=== PATIENT | male | born 1950 | race Caucasian/White ===

== ENCOUNTER 2016-09-15 04:47 | Inpatient (IN) | payer MEDICARE, OTHER ==
[~2016-09-15] VITALS: Ht 177.8 cm; Wt 74.3 kg
[2016-09-15 06:31] LABS: Basophils # (auto) 0 uL; Basophils % (auto) 0.2 % (0.0-2.0); Eosinophils # (auto) 0 uL; Eosinophils % (auto) 0.1 % (0.0-7.0); Hematocrit 48.3 % (41.0-53.0); Hemoglobin 16.9 g/dL (13.5-17.5); Lymphocytes # (auto) 1.3 uL; Lymphocytes % (auto) 11.6 % (10.0-50.0); Mean Corpuscular Hemoglobin 33.8 pg (28.0-32.0); Mean Corpuscular Hgb Conc. 35.1 g/dL (32.0-36.0); Mean Corpuscular Volume 96.4 fL (80.0-100.0); Mean Platelet Volume 8.5 fL (7.4-10.4); Monocytes # (auto) 0.6 uL; Monocytes % (auto) 5.6 % (0.0-12.0); Neutrophils # (auto) 9.4 uL; Neutrophils % (auto) 82.5 % (37.0-80.0); Platelet Count (auto) 212 10^3/uL (140-450); Red Cell Distribution Width 13.7 % (11.6-16.0); White Blood Cell 11.4 10^3/uL (4.4-10.8)
[2016-09-15 06:40] LABS: INR 1.11 (0.9-1.15); Partial Thromboplastin Time 29.1 sec (22.64-33.71); Prothrombin Time 11.4 sec (9.37-12.3)
[2016-09-15] MEDS ORDERED: SODIUM CHLORIDE 0.9% 1,000 ML IV ONE (06:51)
[2016-09-15] MEDS ORDERED: MORPHINE SULFATE 4 MG/ML SYRG IV ONE (07:00)
[2016-09-15] MEDS ORDERED: FAMOTIDINE (10MG/ML) 2ML VL IV ONE (07:00)
[2016-09-15] MEDS ORDERED: METOCLOPRAMIDE HCL 5MG/ml INJ 2ml VIAL IV ONE (07:00)
[2016-09-15 07:15] LABS: Albumin 3.9 g/dL (3.4-5.0); Alkaline Phosphatase 67 U/L (45-117); Anion Gap 13 (5-15); Aspartate Aminotransferase 15 U/L (15-37); BUN/Creatinine Ratio 14.7; Bilirubin, Total 1.3 mg/dL (0.2-1.0); Blood Urea Nitrogen 19 mg/dL (7-18); Calcium 8.7 mg/dL (8.5-10.1); Carbon Dioxide 25 mmol/L (21-32); Chloride 106 mmol/L (98-107); GFR African American 72 mL/min; GFR Non-African American 59 mL/min; Glucose 132 mg/dL (74-106); Magnesium 2.2 mg/dL (1.6-2.6); Potassium 3.3 mmol/L (3.5-5.1); Sodium 144 mmol/L (136-145); Total Protein 7.1 g/dL (6.4-8.2)
[2016-09-15] MEDS ORDERED: IOHEXOL 350 MG/ML 100ML IJ ONE (08:22)
[2016-09-15] MEDS ORDERED: NALBUPHINE HCL 10 MG/1ml INJECTION ONE (10:01)
[2016-09-15] MEDS ORDERED: PROMETHAZINE HCL 25 MG/ML 1ML IV ONE (10:15)
[2016-09-15] MEDS ORDERED: NALBUPHINE HCL 10 MG/1ml INJECTION IV ONE (10:15)
[2016-09-15 14:06] LABS: Amylase 48 U/L (25-115)
[2016-09-15] MEDS ORDERED: TEMAZEPAM 15 MG CAP PO PRN (15:45)
[2016-09-15] MEDS ORDERED: HYDROcodone-ACET 5/325MG TAB PO PRN (15:45)
[2016-09-15] MEDS ORDERED: POTASSIUM CHLORIDE 8 MEQ TAB PO ONE (15:45)
[2016-09-15] MEDS ORDERED: MORPHINE SULF INJ 2 MG/ML SYRINGE 1ML IV PRN ×2 (15:45)
[2016-09-15] MEDS ORDERED: DOCUSATE SOD 100 MG CAP PO PRN (15:45)
[2016-09-15] MEDS ORDERED: ONDANSETRON HCL 4 MG/2 ML VIAL IV PRN (15:45)
[2016-09-15] MEDS ORDERED: NITROGLYCERIN 0.4 MG SL TAB SL PRN (15:45)
[2016-09-15] MEDS ORDERED: metroNIDAZOLE 500MG/100ML 100 ML IV ONE (15:45)
[2016-09-15] MEDS ORDERED: cefTRIAXone 1GM/50ML D5W 50 ML IV ONE (15:45)
[2016-09-15 15:57] LABS: Urine Bilirubin Negative (Negative); Urine Blood Negative /uL (Negative); Urine Color Yellow (Yellow); Urine Glucose Normal (Normal); Urine Mucus FEW (None Seen); Urine Nitrite Negative (Negative); Urine RBC 1 /hpf (0 - 3); Urine Urobilinogen Normal (Negative); Urine pH 6.5 (5.0-8.0)
[2016-09-15] MEDS: ZINC SULFATE 220 MG CAP PO SCH (16:00)
[2016-09-15] MEDS: SODIUM CHLORIDE 0.9% 1,000 ML IV SCH ×2 (16:00→17:04)
[2016-09-15] MEDS: MULTIPLE VITAMIN TAB PO SCH (16:00)
[2016-09-15 16:09] LABS: Urine Ketone 1+ (Negative)
[2016-09-15 16:09] LABS: B-Type Natriuretic Peptide 16.79 pg/mL (0-100)
[2016-09-15 16:11] LABS: Temperature: 23.3 C (20.0-25.0)
[2016-09-15 17:48] VITALS: BP 132/80
[2016-09-15] MEDS: ASCORBIC ACID 500 MG TAB PO SCH (21:11)
[2016-09-15] MEDS: FAMOTIDINE 20 MG TAB PO SCH (21:11)
[2016-09-15] MEDS: metroNIDAZOLE 500MG/100ML 100 ML IV SCH (21:12)
[2016-09-15 22:00] VITALS: BP 137/76
[2016-09-16 05:00] VITALS: BP 131/75
[2016-09-16] MEDS: metroNIDAZOLE 500MG/100ML 100 ML IV SCH ×3 (05:03→22:44)
[2016-09-16 06:08] LABS: Basophils # (auto) 0 uL; Basophils % (auto) 0.2 % (0.0-2.0); Eosinophils # (auto) 0 uL; Eosinophils % (auto) 0.2 % (0.0-7.0); Hematocrit 44.8 % (41.0-53.0); Hemoglobin 15.4 g/dL (13.5-17.5); Lymphocytes # (auto) 1.7 uL; Lymphocytes % (auto) 14.4 % (10.0-50.0); Mean Corpuscular Hemoglobin 33.4 pg (28.0-32.0); Mean Corpuscular Hgb Conc. 34.3 g/dL (32.0-36.0); Mean Corpuscular Volume 97.4 fL (80.0-100.0); Mean Platelet Volume 8.9 fL (7.4-10.4); Monocytes # (auto) 1.2 uL; Monocytes % (auto) 9.6 % (0.0-12.0); Neutrophils # (auto) 9.2 uL; Neutrophils % (auto) 75.6 % (37.0-80.0); Platelet Count (auto) 176 10^3/uL (140-450); Red Cell Distribution Width 13.4 % (11.6-16.0); White Blood Cell 12.2 10^3/uL (4.4-10.8)
[2016-09-16 06:56] LABS: Albumin 3.1 g/dL (3.4-5.0); Alkaline Phosphatase 58 U/L (45-117); Amylase 33 U/L (25-115); Anion Gap 12 (5-15); Aspartate Aminotransferase 17 U/L (15-37); BUN/Creatinine Ratio 13.9; Bilirubin, Total 1.9 mg/dL (0.2-1.0); Blood Urea Nitrogen 15 mg/dL (7-18); Calcium 7.8 mg/dL (8.5-10.1); Carbon Dioxide 23 mmol/L (21-32); Chloride 108 mmol/L (98-107); GFR African American 88 mL/min; GFR Non-African American 73 mL/min; Glucose 110 mg/dL (74-106); Potassium 3.6 mmol/L (3.5-5.1); Sodium 143 mmol/L (136-145); Total Protein 6.4 g/dL (6.4-8.2)
[2016-09-16 08:00] VITALS: BP 136/81
[2016-09-16] MEDS: cefTRIAXone 1GM/50ML D5W 50 ML IV SCH (08:43)
[2016-09-16] MEDS: ASCORBIC ACID 500 MG TAB PO SCH ×2 (10:07→22:44)
[2016-09-16] MEDS: FAMOTIDINE 20 MG TAB PO SCH ×2 (10:07→22:44)
[2016-09-16] MEDS: MULTIPLE VITAMIN TAB PO SCH (10:07)
[2016-09-16] MEDS: ZINC SULFATE 220 MG CAP PO SCH (10:07)
[2016-09-16 11:30] VITALS: BP 141/76
[2016-09-16 16:40] VITALS: BP 148/84
[2016-09-16 20:00] VITALS: BP 139/84
[2016-09-16 22:00] VITALS: BP 139/84
[2016-09-17] MEDS: SODIUM CHLORIDE 0.9% 1,000 ML IV SCH ×2 (01:11→17:23)
[2016-09-17 05:00] VITALS: BP 140/85
[2016-09-17] MEDS: metroNIDAZOLE 500MG/100ML 100 ML IV SCH ×3 (05:38→21:53)
[2016-09-17 07:50] VITALS: BP 140/86
[2016-09-17] MEDS: cefTRIAXone 1GM/50ML D5W 50 ML IV SCH (08:32)
[2016-09-17] MEDS: ASCORBIC ACID 500 MG TAB PO SCH ×2 (10:00→21:52)
[2016-09-17] MEDS: FAMOTIDINE 20 MG TAB PO SCH ×2 (10:00→21:52)
[2016-09-17] MEDS: MULTIPLE VITAMIN TAB PO SCH (10:00)
[2016-09-17] MEDS: ZINC SULFATE 220 MG CAP PO SCH (10:00)
[2016-09-17 13:44] VITALS: BP 130/87
[2016-09-17 16:08] VITALS: BP 148/83
[2016-09-17 20:00] VITALS: BP 122/86
[2016-09-17 21:46] VITALS: BP 122/86
[2016-09-18 05:37] VITALS: BP 137/87
[2016-09-18] MEDS: metroNIDAZOLE 500MG/100ML 100 ML IV SCH ×3 (05:47→22:43)
[2016-09-18 08:46] VITALS: BP 126/76
[2016-09-18] MEDS: SODIUM CHLORIDE 0.9% 1,000 ML IV SCH (10:14)
[2016-09-18] MEDS: FAMOTIDINE 20 MG TAB PO SCH ×2 (11:02→23:05)
[2016-09-18] MEDS: cefTRIAXone 1GM/50ML D5W 50 ML IV SCH (11:02)
[2016-09-18] MEDS: ZINC SULFATE 220 MG CAP PO SCH (11:02)
[2016-09-18] MEDS: MULTIPLE VITAMIN TAB PO SCH (11:02)
[2016-09-18] MEDS: ASCORBIC ACID 500 MG TAB PO SCH ×2 (11:03→23:05)
[2016-09-18 12:14] VITALS: BP 129/60
[2016-09-18 16:51] VITALS: BP 151/83
[2016-09-18 22:00] VITALS: BP 125/72
[2016-09-19] MEDS: SODIUM CHLORIDE 0.9% 1,000 ML IV SCH ×2 (02:54→17:41)
[2016-09-19 05:30] VITALS: BP 112/69
[2016-09-19] MEDS: metroNIDAZOLE 500MG/100ML 100 ML IV SCH ×3 (06:33→22:36)
[2016-09-19] MEDS: cefTRIAXone 1GM/50ML D5W 50 ML IV SCH (06:38)
[2016-09-19 06:44] LABS: INR 1.06 (0.9-1.15); Partial Thromboplastin Time 31.4 sec (22.64-33.71); Prothrombin Time 11.5 sec (9.37-12.3)
[2016-09-19 08:16] VITALS: BP 115/80
[2016-09-19 09:00] VITALS: BP 127/72
[2016-09-19] MEDS ORDERED: cefTRIAXone 1GM/50ML D5W 50 ML IV SCH (09:00)
[2016-09-19] MEDS: MULTIPLE VITAMIN TAB PO SCH (09:26)
[2016-09-19] MEDS: ZINC SULFATE 220 MG CAP PO SCH (09:26)
[2016-09-19] MEDS: FAMOTIDINE 20 MG TAB PO SCH ×2 (09:26→22:37)
[2016-09-19] MEDS: ASCORBIC ACID 500 MG TAB PO SCH ×2 (09:26→22:36)
[2016-09-19] MEDS ORDERED: NITROGLYCERIN 0.2MG/HR TOPICAL PATCH TD ONE (11:45)
[2016-09-19] MEDS ORDERED: ASPirin 81 mg TAB PO ONE (11:45)
[2016-09-19 12:57] VITALS: BP 127/80
[2016-09-19 17:00] VITALS: BP 122/70
[2016-09-19 21:53] VITALS: BP 116/69
[2016-09-20 04:48] VITALS: BP 116/62
[2016-09-20 05:50] LABS: Basophils # (auto) 0 uL; Basophils % (auto) 0.4 % (0.0-2.0); Eosinophils # (auto) 0.4 uL; Eosinophils % (auto) 4.5 % (0.0-7.0); Hematocrit 39.9 % (41.0-53.0); Hemoglobin 14.1 g/dL (13.5-17.5); Lymphocytes # (auto) 1.6 uL; Mean Corpuscular Hemoglobin 33.9 pg (28.0-32.0); Mean Corpuscular Hgb Conc. 35.3 g/dL (32.0-36.0); Mean Platelet Volume 7.5 fL (7.4-10.4); Monocytes # (auto) 0.8 uL; Monocytes % (auto) 8.2 % (0.0-12.0); Neutrophils # (auto) 6.5 uL; Neutrophils % (auto) 69.9 % (37.0-80.0); Platelet Count (auto) 253 10^3/uL (140-450); Red Cell Distribution Width 12.3 % (11.6-16.0); White Blood Cell 9.2 10^3/uL (4.4-10.8)
[2016-09-20] MEDS: metroNIDAZOLE 500MG/100ML 100 ML IV SCH ×2 (06:00→18:19)
[2016-09-20 06:30] LABS: Albumin 2.7 g/dL (3.4-5.0); BUN/Creatinine Ratio 13.6; Bilirubin, Total 0.8 mg/dL (0.2-1.0); Calcium 7.9 mg/dL (8.5-10.1); Potassium 3.4 mmol/L (3.5-5.1); Total Protein 6.2 g/dL (6.4-8.2)
[2016-09-20] MEDS ORDERED: LIDOCAINE 2%HCL (LOCAL ANESTH.) INJ 20ML MDV ONE (08:55)
[2016-09-20] MEDS ORDERED: IODIXANOL 320MG/ML 100ML BTL IV ONE (08:55)
[2016-09-20 09:00] VITALS: BP 120/69
[2016-09-20] MEDS: NITROGLYCERIN 0.2MG/HR TOPICAL PATCH TD SCH (09:03)
[2016-09-20] MEDS: FAMOTIDINE 20 MG TAB PO SCH ×2 (09:03→22:06)
[2016-09-20] MEDS: ASCORBIC ACID 500 MG TAB PO SCH ×2 (09:03→22:06)
[2016-09-20] MEDS: ASPirin 81 mg TAB PO SCH (09:03)
[2016-09-20] MEDS: ZINC SULFATE 220 MG CAP PO SCH (09:03)
[2016-09-20] MEDS: MULTIPLE VITAMIN TAB PO SCH (09:03)
[2016-09-20] MEDS: SODIUM CHLORIDE 0.9% 1,000 ML IV SCH (11:32)
[2016-09-20 13:00] VITALS: BP 137/74
[2016-09-20] MEDS ORDERED: MIDAZOLAM HCL 1MG/1ML-2 ML VIAL ONE (13:29)
[2016-09-20] MEDS ORDERED: ANGIOMAX 250 MG VIAL IV ONE (13:29)
[2016-09-20] MEDS ORDERED: SODIUM CHL 0.9% 0 ML ONE (13:29)
[2016-09-20] MEDS ORDERED: fentaNYL CITRATE 100 MCG/2 ML VL ONE (13:29)
[2016-09-20 17:01] VITALS: BP 145/93
[2016-09-20 21:30] VITALS: BP 137/77
[2016-09-21] MEDS: SODIUM CHLORIDE 0.9% 1,000 ML IV SCH ×2 (02:05→21:58)
[2016-09-21] MEDS: metroNIDAZOLE 500MG/100ML 100 ML IV SCH ×3 (02:05→17:28)
[2016-09-21 05:10] VITALS: BP 130/74
[2016-09-21 06:47] LABS: Cholesterol 86 mg/dL (0-200); HDL Cholesterol 25 mg/dL (40-59); LDL Cholesterol 66 mg/dL (<100); Triglycerides 66 mg/dL (<150)
[2016-09-21 07:50] VITALS: BP 132/86
[2016-09-21 09:17] VITALS: BP 132/86
[2016-09-21] MEDS: ASCORBIC ACID 500 MG TAB PO SCH ×2 (09:46→21:58)
[2016-09-21] MEDS: ZINC SULFATE 220 MG CAP PO SCH (09:46)
[2016-09-21] MEDS: MULTIPLE VITAMIN TAB PO SCH (09:46)
[2016-09-21] MEDS: FAMOTIDINE 20 MG TAB PO SCH ×2 (09:46→21:58)
[2016-09-21] MEDS: ASPirin 81 mg TAB PO SCH (09:46)
[2016-09-21] MEDS: NITROGLYCERIN 0.2MG/HR TOPICAL PATCH TD SCH (10:31)
[2016-09-21 13:08] VITALS: BP 127/77
[2016-09-21] MEDS ORDERED: HYDR25TA4 PO (14:27)
[2016-09-21] MEDS ORDERED: ASPI-231 PO (14:27)
[2016-09-21] MEDS ORDERED: ATOR40TA52 PO (14:27)
[2016-09-21] MEDS ORDERED: CLOP75TA41 PO (14:27)
[2016-09-21 17:22] VITALS: BP 121/76
[2016-09-21 22:00] VITALS: BP 131/78
[2016-09-22] MEDS: metroNIDAZOLE 500MG/100ML 100 ML IV SCH ×3 (02:00→18:27)
[2016-09-22 04:54] VITALS: BP 131/79
[2016-09-22 05:54] LABS: Basophils # (auto) 0.1 uL; Basophils % (auto) 0.5 % (0.0-2.0); Eosinophils # (auto) 0.4 uL; Eosinophils % (auto) 4.6 % (0.0-7.0); Hematocrit 44.3 % (41.0-53.0); Hemoglobin 15.2 g/dL (13.5-17.5); Lymphocytes # (auto) 2.2 uL; Lymphocytes % (auto) 23.6 % (10.0-50.0); Mean Corpuscular Hgb Conc. 34.3 g/dL (32.0-36.0); Mean Corpuscular Volume 96.1 fL (80.0-100.0); Mean Platelet Volume 7.3 fL (7.4-10.4); Monocytes # (auto) 0.6 uL; Monocytes % (auto) 6.6 % (0.0-12.0); Neutrophils # (auto) 6.2 uL; Neutrophils % (auto) 64.7 % (37.0-80.0); Platelet Count (auto) 338 10^3/uL (140-450); Red Cell Distribution Width 12.9 % (11.6-16.0); White Blood Cell 9.5 10^3/uL (4.4-10.8)
[2016-09-22 06:10] LABS: INR 1.15 (0.9-1.15)
[2016-09-22 06:12] LABS: Prothrombin Time 12.4 sec (9.37-12.3)
[2016-09-22 06:35] LABS: Albumin 2.9 g/dL (3.4-5.0); Bilirubin, Total 0.5 mg/dL (0.2-1.0); Calcium 8.3 mg/dL (8.5-10.1); Magnesium 2.4 mg/dL (1.6-2.6); Potassium 3.5 mmol/L (3.5-5.1); Total Protein 6.8 g/dL (6.4-8.2)
[2016-09-22 07:38] VITALS: BP 130/90
[2016-09-22] MEDS ORDERED: LIDOCAINE HCL 100 MG/5ML (2%) SYRG INJ IV ONE (08:00)
[2016-09-22] MEDS ORDERED: SODIUM BICARBONATE 8.4 % INJ 50ML VIAL IV ONE (08:00)
[2016-09-22] MEDS ORDERED: ADENOSINE 6 MG/2 ML INJ IV ONE (08:00)
[2016-09-22] MEDS ORDERED: HEPARIN SODIUM (PORCINE) 5000 UNITS/ML 1ML VIAL SC ONE (08:00)
[2016-09-22] MEDS ORDERED: POTASSIUM CHL 2MEQ/ML 20ML IV ONE (08:00)
[2016-09-22] MEDS ORDERED: AMINOCAPROIC ACID 5 GM/20 ML VL IV ONE (08:00)
[2016-09-22] MEDS ORDERED: PHENYLEPHRINE HCL 10 MG/ML VL IV ONE (08:00)
[2016-09-22] MEDS ORDERED: CALCIUM CHLOR(10%) 100MG/ML 10ML SYRINGE IV ONE (08:00)
[2016-09-22] MEDS ORDERED: DEXAMETHASONE SODIUM PHOSP 120 MG/30ml VIAL IV ONE (08:00)
[2016-09-22 09:00] VITALS: BP 130/90
[2016-09-22 09:05] LABS: INR 1.15 (0.9-1.15); Partial Thromboplastin Time 31.5 sec (22.64-33.71)
[2016-09-22 09:06] LABS: Prothrombin Time 12.4 sec (9.37-12.3)
[2016-09-22] MEDS: MULTIPLE VITAMIN TAB PO SCH (09:44)
[2016-09-22] MEDS: ZINC SULFATE 220 MG CAP PO SCH (09:44)
[2016-09-22] MEDS: FAMOTIDINE 20 MG TAB PO SCH ×2 (09:44→21:21)
[2016-09-22] MEDS: ASCORBIC ACID 500 MG TAB PO SCH ×2 (09:44→21:21)
[2016-09-22] MEDS: ASPirin 81 mg TAB PO SCH (09:44)
[2016-09-22] MEDS: NITROGLYCERIN 0.2MG/HR TOPICAL PATCH TD SCH (09:47)
[2016-09-22 13:00] VITALS: BP 123/74
[2016-09-22] MEDS: SODIUM CHLORIDE 0.9% 1,000 ML IV SCH (14:14)
[2016-09-22 17:00] VITALS: BP 139/84
[2016-09-22 21:42] VITALS: BP_SYST 138; BP_SYST 140; BP_DIAS 74; BP_DIAS 80
[2016-09-22] MEDS ORDERED: MUPIROCIN 2% OINT 22GM ONE (22:03)
[2016-09-22] MEDS: MUPIROCIN 2% OINT 22GM TOP SCH (22:20)
[2016-09-23] VITALS (39 sets, daily range): BP systolic 22–141; BP diastolic 9–86
[2016-09-23 01:06] LABS: Urine Bilirubin Negative (Negative); Urine Blood Negative /uL (Negative); Urine Color Yellow (Yellow); Urine Glucose Normal (Normal); Urine Ketone Negative (Negative); Urine Nitrite Negative (Negative); Urine RBC <1 /hpf (0 - 3); Urine Urobilinogen Normal (Negative)
[2016-09-23] MEDS ORDERED: CHLORHEXIDINE 4% TOPICAL soln 473ML TOP ONE (02:00)
[2016-09-23] MEDS: metroNIDAZOLE 500MG/100ML 100 ML IV SCH (02:57)
[2016-09-23] MEDS: SODIUM CHLORIDE 0.9% 1,000 ML IV SCH (06:24)
[2016-09-23] MEDS: MUPIROCIN 2% OINT 22GM TOP SCH (06:24)
[2016-09-23] MEDS ORDERED: SUCCINYLCHOLINE CHLORIDE 20 MG/ML 10ML VIAL IV ONE (06:32)
[2016-09-23] MEDS ORDERED: DESMOPRESSIN ACET 4 MCG/1 ML AMPULE ONE (06:32)
[2016-09-23] MEDS ORDERED: ceFAZolin 1GM VL ONE ×2 (06:33→10:51)
[2016-09-23] MEDS ORDERED: PAPAVERINE HCL 60 MG/2 ML 2ML VIAL ONE (06:34)
[2016-09-23] MEDS ORDERED: NEOMYCIN-BACITRACIN-POLYM 15GM TOP OINT TOP ONE (06:34)
[2016-09-23] MEDS ORDERED: HEPARIN 1,000 UNITS/ml 1ML VIAL ONE (06:34)
[2016-09-23] MEDS ORDERED: CALCIUM CHLOR(10%) 100MG/ML 10ML SYRINGE IV ONE ×2 (06:43→15:47)
[2016-09-23] MEDS ORDERED: NITROGLYCERIN 50MG/250ML 250 ML IV ONE ×2 (06:43→13:27)
[2016-09-23] MEDS ORDERED: ePHEDrine SULFATE 50 MG/ML AMP ONE (06:45)
[2016-09-23] MEDS ORDERED: MIDAZOLAM HCL 1MG/1ML-2 ML VIAL ONE ×3 (06:50→09:44)
[2016-09-23] MEDS ORDERED: HYDROmorphone HCL 2 MG/ML VL ONE ×2 (06:50→08:56)
[2016-09-23 06:54] LABS: Basophils # (auto) 0 uL; Basophils % (auto) 0.5 % (0.0-2.0); Eosinophils # (auto) 0.4 uL; Eosinophils % (auto) 4.4 % (0.0-7.0); Hematocrit 43.8 % (41.0-53.0); Lymphocytes # (auto) 1.8 uL; Lymphocytes % (auto) 20.4 % (10.0-50.0); Mean Corpuscular Hemoglobin 33.1 pg (28.0-32.0); Mean Corpuscular Hgb Conc. 34.3 g/dL (32.0-36.0); Mean Corpuscular Volume 96.4 fL (80.0-100.0); Mean Platelet Volume 7.6 fL (7.4-10.4); Monocytes # (auto) 0.6 uL; Monocytes % (auto) 7.2 % (0.0-12.0); Neutrophils % (auto) 67.5 % (37.0-80.0); Platelet Count (auto) 339 10^3/uL (140-450); Red Cell Distribution Width 12.5 % (11.6-16.0); White Blood Cell 8.9 10^3/uL (4.4-10.8)
[2016-09-23] MEDS ORDERED: SODIUM BICARBONATE 8.4 % INJ 50ML VIAL IV ONE ×2 (06:55→15:47)
[2016-09-23] MEDS ORDERED: ETOMIDATE (2MG/ML) 20ML VIAL IV ONE (06:55)
[2016-09-23] MEDS ORDERED: LIDOCAINE 2%HCL (LOCAL ANESTH.) INJ 20ML MDV ONE (06:55)
[2016-09-23] MEDS ORDERED: ROCURONIUM 10MG/ML 10ML VIAL IV ONE (06:56)
[2016-09-23 07:00] LABS: Calcium 8.4 mg/dL (8.5-10.1); Magnesium 2.4 mg/dL (1.6-2.6); Potassium 3.6 mmol/L (3.5-5.1)
[2016-09-23 07:04] LABS: BUN/Creatinine Ratio 17.4
[2016-09-23] MEDS ORDERED: VANCOMYCIN 1GM/250ML D5W 250 ML IV ONE ×2 (07:09→08:00)
[2016-09-23 07:26] LABS: INR 1.16 (0.9-1.15); Prothrombin Time 12.5 sec (9.37-12.3)
[2016-09-23] MEDS ORDERED: ALBUMIN 25% 400 ML IV ONE (07:36)
[2016-09-23] MEDS ORDERED: EPINEPHrine HCL 4 MG in D5W 5% 250 ML IM ONE (08:00)
[2016-09-23] MEDS ORDERED: AMINOCAPROIC ACID 5 GM in SODIUM CHL 0.9% 250 ML IV ONE (08:00)
[2016-09-23] MEDS ORDERED: VASOPRESSIN 50 UNITS in SODIUM CHL 0.9% 247.5 ML IV ONE (08:00)
[2016-09-23] MEDS ORDERED: ACCU-CHEK COMFORT CURVE STRIP VI ONE (08:00)
[2016-09-23] MEDS ORDERED: CHLORHEXIDINE 0.12% ORAL rinse 473ML MT ONE (08:00)
[2016-09-23] MEDS ORDERED: ceFAZolin 1GM 2 GM in D5W 5% 100 ML IV ONE (08:00)
[2016-09-23] MEDS ORDERED: ASCORBIC ACID 500 MG TAB PO ONE (08:00)
[2016-09-23] MEDS ORDERED: PHENYLEPHRINE INJ 20 MG in SODIUM CHL 0.9% 250 ML IV ONE (08:00)
[2016-09-23] MEDS ORDERED: InsuLIN R (HUMAN) 100 UNITS in SODIUM CHL 0.9% 99 ML IV ONE (08:00)
[2016-09-23] MEDS ORDERED: HEPARIN 30000 UNITS in SODIUM CHLORIDE 0.9% 1000 ML IV ONE (08:00)
[2016-09-23] MEDS ORDERED: AMINOCAPROIC ACID 10 GM in SODIUM CHL 0.9% 100 ML IV ONE (08:00)
[2016-09-23] MEDS ORDERED: PLASMA-LYTE A pH7.4 5,000 ML INJ ONE (08:47)
[2016-09-23] MEDS ORDERED: PROTAMINE SULFATE 250 MG/25 ML VL IV ONE (09:28)
[2016-09-23] MEDS ORDERED: MILRINONE 20 ML ONE (09:31)
[2016-09-23] MEDS ORDERED: AMIODARONE HCL (50 MG/ ML) 3 ML VIAL IV ONE ×2 (09:31→13:26)
[2016-09-23] MEDS ORDERED: ALBUMIN 5% 750 ML IV ONE (13:24)
[2016-09-23] MEDS ORDERED: MAGNESIUM SULFATE 1GM/100ML 200 ML IV ONE (13:25)
[2016-09-23] MEDS ORDERED: SODIUM BICARBONATE 8.4% INJ 50ML SYRINGE ONE (13:25)
[2016-09-23] MEDS ORDERED: POTASSIUM CHL 20MEQ/100ML 200 ML IV ONE (13:25)
[2016-09-23] MEDS ORDERED: NICARDIPINE 25MG/250ML BAG KIT 250 ML IV ONE (13:26)
[2016-09-23] MEDS ORDERED: EPINEPHrine HCL 250 ML IV ONE (13:27)
[2016-09-23] MEDS ORDERED: DOPAMINE IV ONE (13:27)
[2016-09-23] MEDS ORDERED: VASOPRESSIN 20 UNIT/ML ONE (13:27)
[2016-09-23] MEDS ORDERED: NOREPINEPHRINE BITARTRATE 250 ML IV ONE (13:27)
[2016-09-23] MEDS ORDERED: MILRINONE 20MG/100ML 100 ML IV ONE (13:27)
[2016-09-23] MEDS ORDERED: PHENYLEPHRINE IV 250 ML IV ONE (13:27)
[2016-09-23] MEDS ORDERED: DOBUTamine 1000MCG/ML 250 ML IV ONE (13:27)
[2016-09-23] MEDS ORDERED: PROPOFOL 100 ML IV ONE (13:28)
[2016-09-23] MEDS ORDERED: NITROGLYCERIN 50MG/250ML 250 ML IV SCH (13:53)
[2016-09-23] MEDS ORDERED: INSULIN DRIP 100 UNIT/100ML 100 ML IV SCH (13:53)
[2016-09-23] MEDS ORDERED: DEXTROSE (50%) 50ML SYRG IV PRN (14:00)
[2016-09-23] MEDS ORDERED: AMIODARONE HCL 150 MG in D5W 5% 100 ML IV ONE (14:00)
[2016-09-23] MEDS ORDERED: SODIUM BICARBONATE 8.4% INJ 50ML SYRINGE IV PRN (14:00)
[2016-09-23] MEDS ORDERED: MORPHINE SULFATE 4 MG/ML SYRG IV PRN (14:00)
[2016-09-23] MEDS ORDERED: MAGNESIUM SULFATE 1GM/100ML 100 ML IV PRN (14:00)
[2016-09-23] MEDS ORDERED: ONDANSETRON HCL 4 MG/2 ML VIAL IV PRN (14:00)
[2016-09-23] MEDS ORDERED: AMIODARONE HCL 900 MG in DEXTROSE 500 ML IV SCH (14:03)
[2016-09-23] MEDS: NICARDIPINE 25MG/250ML BAG KIT 250 ML IV SCH ×3 (14:29→23:53)
[2016-09-23] MEDS: SODIUM CHLORIDE 0.9% 500 ML IV SCH (14:29)
[2016-09-23] MEDS: MILRINONE 20MG/100ML 100 ML IV SCH (14:29)
[2016-09-23] MEDS: NOREPINEPHRINE BITARTRATE 250 ML IV SCH (14:35)
[2016-09-23] MEDS ORDERED: fentaNYL CITRATE 100 MCG/2 ML VL ONE (14:39)
[2016-09-23] MEDS ORDERED: fentaNYL CITRATE 5 ML ONE (14:41)
[2016-09-23] MEDS: PHENYLEPHRINE IV 250 ML IV SCH (15:00)
[2016-09-23] MEDS: PROPOFOL 100 ML IV SCH ×2 (15:00→20:10)
[2016-09-23] MEDS ORDERED: D5W 5% IV SCH (15:00)
[2016-09-23] MEDS ORDERED: CEFAZOLIN IV SCH (15:00)
[2016-09-23] MEDS: ACCU-CHEK COMFORT CURVE STRIP VI SCH ×9 (15:00→23:29)
[2016-09-23 15:47] LABS: Basophils # (auto) 0 uL; Eosinophils # (auto) 0 uL; Eosinophils % (auto) 0.2 % (0.0-7.0); Hematocrit 39.8 % (41.0-53.0); Hemoglobin 13.3 g/dL (13.5-17.5); Lymphocytes # (auto) 1.1 uL; Lymphocytes % (auto) 5.8 % (10.0-50.0); Mean Corpuscular Hemoglobin 32.9 pg (28.0-32.0); Mean Corpuscular Hgb Conc. 33.5 g/dL (32.0-36.0); Mean Corpuscular Volume 98.3 fL (80.0-100.0); Mean Platelet Volume 7.4 fL (7.4-10.4); Monocytes # (auto) 0.3 uL; Monocytes % (auto) 1.9 % (0.0-12.0); Neutrophils # (auto) 16.8 uL; Neutrophils % (auto) 92.1 % (37.0-80.0); Platelet Count (auto) 380 10^3/uL (140-450); Red Cell Distribution Width 12.9 % (11.6-16.0); White Blood Cell 18.2 10^3/uL (4.4-10.8)
[2016-09-23] MEDS ORDERED: AMINOCAPROIC ACID 5 GM/20 ML VL IV ONE (15:47)
[2016-09-23] MEDS ORDERED: MAGNESIUM SULF 50% 40 MEQ/10 ML VL IV ONE (15:47)
[2016-09-23] MEDS ORDERED: ADENOSINE 6 MG/2 ML INJ IV ONE (15:47)
[2016-09-23] MEDS ORDERED: POTASSIUM CHL 2MEQ/ML 20ML IV ONE (15:47)
[2016-09-23] MEDS ORDERED: HEPARIN SODIUM (PORCINE) 5000 UNITS/ML 1ML VIAL SC ONE (15:47)
[2016-09-23] MEDS ORDERED: LIDOCAINE HCL 100 MG/5ML (2%) SYRG INJ IV ONE (15:47)
[2016-09-23] MEDS ORDERED: DEXAMETHASONE SODIUM PHOSP 120 MG/30ml VIAL IV ONE (15:47)
[2016-09-23] MEDS: D5W/SOD CHL 0.45% 1,000 ML IV SCH ×2 (15:48→20:33)
[2016-09-23 16:05] LABS: Albumin 3.5 g/dL (3.4-5.0); BUN/Creatinine Ratio 11.7; Bilirubin, Total 0.9 mg/dL (0.2-1.0); Calcium 8.3 mg/dL (8.5-10.1); Magnesium 3.4 mg/dL (1.6-2.6); Phosphorus 2.6 mg/dL (2.5-4.90); Potassium 4.3 mmol/L (3.5-5.1); Total Protein 6.2 g/dL (6.4-8.2)
[2016-09-23 16:41] LABS: Partial Thromboplastin Time 32.7 sec (22.64-33.71)
[2016-09-23 16:42] LABS: INR 1.21 (0.9-1.15); Prothrombin Time 13.1 sec (9.37-12.3)
[2016-09-23] MEDS ORDERED: CALCIUM GLUC 4.65 MEQ/10ML 4.65 MEQ in SODIUM CHL 0.9% 50 ML IV ONE (16:45)
[2016-09-23] MEDS: PANTOPRAZOLE SODIUM 40 MG/10 ML VIAL IV SCH (16:52)
[2016-09-23] MEDS: ALBUMIN 5% 250 ML IV PRN ×2 (17:00→20:11)
[2016-09-23] MEDS: ACETAMINOPHEN IV 100 ML IV SCH (18:29)
[2016-09-23] MEDS: ceFAZolin 1GM 2 GM in D5W 5% 100 ML IV SCH (18:31)
[2016-09-23] MEDS: AMIODARONE HCL 900 MG in DEXTROSE 500 ML IV SCH (20:03)
[2016-09-23] MEDS: VANCOMYCIN 1GM/250ML D5W 250 ML IV SCH (20:13)
[2016-09-23 22:05] LABS: Basophils # (auto) 0.1 uL; Basophils % (auto) 0.5 % (0.0-2.0); Eosinophils # (auto) 0 uL; Hemoglobin 12.3 g/dL (13.5-17.5); Lymphocytes # (auto) 0.7 uL; Lymphocytes % (auto) 4.3 % (10.0-50.0); Mean Corpuscular Hemoglobin 33.1 pg (28.0-32.0); Mean Corpuscular Volume 97.2 fL (80.0-100.0); Mean Platelet Volume 7.2 fL (7.4-10.4); Monocytes # (auto) 0.3 uL; Monocytes % (auto) 1.9 % (0.0-12.0); Neutrophils # (auto) 14.4 uL; Neutrophils % (auto) 93.3 % (37.0-80.0); Platelet Count (auto) 335 10^3/uL (140-450); Red Cell Distribution Width 13.1 % (11.6-16.0); White Blood Cell 15.5 10^3/uL (4.4-10.8)
[2016-09-23 22:20] LABS: BUN/Creatinine Ratio 11.8; Calcium 8.3 mg/dL (8.5-10.1); Magnesium 2.8 mg/dL (1.6-2.6); Phosphorus 1.9 mg/dL (2.5-4.90); Potassium 3.7 mmol/L (3.5-5.1)
[2016-09-23] MEDS: CHLORHEXIDINE 0.12% ORAL rinse 473ML MT SCH (22:21)
[2016-09-23] MEDS: POTASSIUM CHL 20MEQ/100ML 100 ML IV PRN (23:37)
[2016-09-24] VITALS (102 sets, daily range): BP systolic 17–143; BP diastolic 2–87
[2016-09-24] MEDS: ACCU-CHEK COMFORT CURVE STRIP VI SCH ×14 (00:10→23:25)
[2016-09-24] MEDS: ceFAZolin 1GM 2 GM in D5W 5% 100 ML IV SCH ×4 (00:13→23:57)
[2016-09-24] MEDS: ACETAMINOPHEN IV 100 ML IV SCH ×3 (00:13→12:08)
[2016-09-24] MEDS: POTASSIUM CHL 20MEQ/100ML 100 ML IV PRN ×3 (00:41→12:07)
[2016-09-24] MEDS: MILRINONE 20MG/100ML 100 ML IV SCH ×3 (01:09→23:41)
[2016-09-24] MEDS: D5W/SOD CHL 0.45% 1,000 ML IV SCH ×3 (03:13→18:51)
[2016-09-24 03:38] LABS: Basophils # (auto) 0 uL; Basophils % (auto) 0.1 % (0.0-2.0); Eosinophils # (auto) 0 uL; Hematocrit 34.3 % (41.0-53.0); Hemoglobin 11.8 g/dL (13.5-17.5); Lymphocytes # (auto) 0.7 uL; Lymphocytes % (auto) 4.7 % (10.0-50.0); Mean Corpuscular Hemoglobin 33.8 pg (28.0-32.0); Mean Corpuscular Hgb Conc. 34.4 g/dL (32.0-36.0); Mean Corpuscular Volume 98.4 fL (80.0-100.0); Mean Platelet Volume 7.1 fL (7.4-10.4); Monocytes # (auto) 0.4 uL; Monocytes % (auto) 2.7 % (0.0-12.0); Neutrophils # (auto) 13.4 uL; Neutrophils % (auto) 92.5 % (37.0-80.0); Platelet Count (auto) 304 10^3/uL (140-450); Red Cell Distribution Width 12.8 % (11.6-16.0); White Blood Cell 14.5 10^3/uL (4.4-10.8)
[2016-09-24 03:57] LABS: Calcium 8.1 mg/dL (8.5-10.1); Magnesium 2.7 mg/dL (1.6-2.6)
[2016-09-24 04:01] LABS: BUN/Creatinine Ratio 13.5; Phosphorus 2.5 mg/dL (2.5-4.90)
[2016-09-24] MEDS: NICARDIPINE 25MG/250ML BAG KIT 250 ML IV SCH ×4 (05:40→19:53)
[2016-09-24] MEDS: PROPOFOL 100 ML IV SCH (06:43)
[2016-09-24] MEDS: DOPamine 1600MCG/ML 250 ML IV SCH ×2 (06:46→23:25)
[2016-09-24] MEDS: MORPHINE SULFATE 4 MG/ML SYRG IV PRN ×2 (07:35→20:28)
[2016-09-24] MEDS: VANCOMYCIN 1GM/250ML D5W 250 ML IV SCH ×2 (08:27→19:46)
[2016-09-24] MEDS ORDERED: ALBUMIN 25% 100 ML IV ONE ×2 (09:07→09:15)
[2016-09-24] MEDS ORDERED: CALCIUM GLUC 4.65 MEQ/10ML 4.65 MEQ in SODIUM CHL 0.9% 50 ML IV ONE (09:30)
[2016-09-24] MEDS ORDERED: NITROGLYCERIN 0.4MG/HR TOPICAL PATCH TD ONE (10:00)
[2016-09-24] MEDS ORDERED: MILK OF MAGNESIA 30ML SUSP PO PRN (10:00)
[2016-09-24] MEDS: PANTOPRAZOLE 40 MG TAB PO SCH (10:00)
[2016-09-24] MEDS: PANTOPRAZOLE SODIUM 40 MG/10 ML VIAL IV SCH (10:10)
[2016-09-24] MEDS: CHLORHEXIDINE 0.12% ORAL rinse 473ML MT SCH ×2 (10:10→21:31)
[2016-09-24] MEDS: NITROGLYCERIN 0.4MG/HR TOPICAL PATCH TD SCH (10:11)
[2016-09-24] MEDS ORDERED: DEXTROSE (50%) 50ML SYRG IV PRN (10:15)
[2016-09-24] MEDS: InsuLIN REG 1unit/0.01ml Soln (100units/ml) SC SCH ×4 (12:00→23:29)
[2016-09-24] MEDS: SODIUM CHLORIDE 0.9% 500 ML IV SCH (13:53)
[2016-09-24] MEDS: NOREPINEPHRINE BITARTRATE 250 ML IV SCH (13:53)
[2016-09-24] MEDS: IPRATROPIUM BROM 0.5 MG/2.5ML INH SOL NEB SCH ×3 (14:20→22:29)
[2016-09-24] MEDS: ACETYLCYSTEINE 10 %(100MG/ML) SOL 4ML NEB SCH ×2 (14:21→19:31)
[2016-09-24] MEDS: PHENYLEPHRINE IV 250 ML IV SCH (15:00)
[2016-09-24 15:01] LABS: Hematocrit 32.8 % (41.0-53.0); Hemoglobin 11.1 g/dL (13.5-17.5); Mean Corpuscular Hemoglobin 33.1 pg (28.0-32.0); Mean Corpuscular Hgb Conc. 33.9 g/dL (32.0-36.0); Mean Corpuscular Volume 97.5 fL (80.0-100.0); Mean Platelet Volume 7.3 fL (7.4-10.4); Platelet Count (auto) 292 10^3/uL (140-450); Red Cell Distribution Width 13.2 % (11.6-16.0); SUSPECT VIEW TRANSMISSION; White Blood Cell 18.1 10^3/uL (4.4-10.8)
[2016-09-24 15:12] LABS: Metamyelocytes % 0; Myelocytes % 0; Promyelocytes % 0; Reactive Lymphocytes 0
[2016-09-24 15:22] LABS: Calcium 8.7 mg/dL (8.5-10.1); Magnesium 2.6 mg/dL (1.6-2.6); Potassium 4.5 mmol/L (3.5-5.1)
[2016-09-24] MEDS: ASCORBIC ACID 500 MG TAB PO SCH ×2 (16:17→21:30)
[2016-09-24] MEDS: DOCUSATE SOD 100 MG CAP PO SCH ×2 (16:18→21:31)
[2016-09-24] MEDS: ASPirin 81 mg TAB PO SCH (16:18)
[2016-09-24 17:19] LABS: Anisocytosis Slight; Platelet Estimate Adequate
[2016-09-24] MEDS: HYDROcodone-ACET 5/325MG TAB PO PRN ×2 (18:47→23:26)
[2016-09-24] MEDS: AMIODARONE HCL 900 MG in DEXTROSE 500 ML IV SCH (20:03)
[2016-09-24] MEDS: ATORVASTATIN 20 MG TAB PO SCH (21:30)
[2016-09-25] VITALS (91 sets, daily range): BP systolic 77–130; BP diastolic 44–81
[2016-09-25] MEDS: NICARDIPINE 25MG/250ML BAG KIT 250 ML IV SCH ×2 (00:53→04:11)
[2016-09-25] MEDS: MORPHINE SULFATE 4 MG/ML SYRG IV PRN ×4 (01:52→11:21)
[2016-09-25] MEDS: ACCU-CHEK COMFORT CURVE STRIP VI SCH ×3 (03:33→12:00)
[2016-09-25] MEDS: InsuLIN REG 1unit/0.01ml Soln (100units/ml) SC SCH ×3 (03:36→13:14)
[2016-09-25 03:56] LABS: Basophils # (auto) 0 uL; Basophils % (auto) 0.2 % (0.0-2.0); Eosinophils # (auto) 0 uL; Hematocrit 33.2 % (41.0-53.0); Hemoglobin 11.2 g/dL (13.5-17.5); Lymphocytes # (auto) 1.7 uL; Lymphocytes % (auto) 9.6 % (10.0-50.0); Mean Corpuscular Hemoglobin 33.1 pg (28.0-32.0); Mean Corpuscular Hgb Conc. 33.7 g/dL (32.0-36.0); Mean Corpuscular Volume 98.3 fL (80.0-100.0); Mean Platelet Volume 7.2 fL (7.4-10.4); Monocytes # (auto) 0.8 uL; Monocytes % (auto) 4.5 % (0.0-12.0); Neutrophils # (auto) 15.6 uL; Neutrophils % (auto) 85.7 % (37.0-80.0); Platelet Count (auto) 285 10^3/uL (140-450); Red Cell Distribution Width 13.3 % (11.6-16.0); White Blood Cell 18.2 10^3/uL (4.4-10.8)
[2016-09-25 04:31] LABS: Albumin 3.5 g/dL (3.4-5.0); BUN/Creatinine Ratio 22.2; Bilirubin, Total 0.5 mg/dL (0.2-1.0); Calcium 8.4 mg/dL (8.5-10.1); Magnesium 2.6 mg/dL (1.6-2.6); Potassium 4.5 mmol/L (3.5-5.1)
[2016-09-25] MEDS: D5W/SOD CHL 0.45% 1,000 ML IV SCH ×2 (05:53→08:16)
[2016-09-25] MEDS: ACETYLCYSTEINE 10 %(100MG/ML) SOL 4ML NEB SCH ×2 (06:37→22:26)
[2016-09-25] MEDS ORDERED: CALCIUM GLUC 4.65 MEQ/10ML 4.65 MEQ in SODIUM CHL 0.9% 50 ML IV ONE (08:15)
[2016-09-25] MEDS: VANCOMYCIN 1GM/250ML D5W 250 ML IV SCH (08:17)
[2016-09-25] MEDS: ceFAZolin 1GM 2 GM in D5W 5% 100 ML IV SCH (08:18)
[2016-09-25] MEDS ORDERED: METOCLOPRAMIDE HCL 5MG/ml INJ 2ml VIAL IV PRN (08:30)
[2016-09-25] MEDS ORDERED: POTASSIUM CHL 20MEQ/100ML 100 ML IV PRN (08:30)
[2016-09-25] MEDS ORDERED: TEMAZEPAM 15 MG CAP PO PRN (08:30)
[2016-09-25] MEDS: SODIUM CHLORIDE 0.9% 1,000 ML IV SCH (08:30)
[2016-09-25] MEDS ORDERED: HYDROcodone-ACET 7.5/325MG TAB PO PRN (08:30)
[2016-09-25] MEDS ORDERED: hydrALAZINE HCL 20 MG/ML VL IV PRN (08:45)
[2016-09-25] MEDS ORDERED: POTASSIUM CHL 20 Meq TABLET PO SCH (10:00)
[2016-09-25] MEDS: ASPirin 81 mg TAB PO SCH (10:00)
[2016-09-25] MEDS: PANTOPRAZOLE 40 MG TAB PO SCH (10:00)
[2016-09-25] MEDS: CHLORHEXIDINE 0.12% ORAL rinse 473ML MT SCH ×2 (10:00→21:23)
[2016-09-25] MEDS: DOCUSATE SOD 100 MG CAP PO SCH ×2 (10:00→21:23)
[2016-09-25] MEDS ORDERED: ceFAZolin 1GM 2 GM in D5W 5% 100 ML IV ONE (10:30)
[2016-09-25] MEDS: METOPROLOL TARTRATE 25 MG TAB PO SCH ×2 (10:45→21:23)
[2016-09-25] MEDS: ASCORBIC ACID 500 MG TAB PO SCH ×2 (10:45→21:25)
[2016-09-25] MEDS: NITROGLYCERIN 0.4MG/HR TOPICAL PATCH TD SCH (10:47)
[2016-09-25] MEDS: IPRATROPIUM BROM 0.5 MG/2.5ML INH SOL NEB SCH ×4 (10:50→22:26)
[2016-09-25] MEDS: Boost Glucose Control 8 Ounces PO SCH ×2 (12:00→18:30)
[2016-09-25] MEDS ORDERED: KETOROLAC TROMETH 30 MG/ML 1ML VIAL ONE (13:10)
[2016-09-25] MEDS ORDERED: KETOROLAC TROMETH 30 MG/ML 1ML VIAL IV ONE (13:15)
[2016-09-25] MEDS ORDERED: fentaNYL CITRATE 100 MCG/2 ML VL IV PRN (13:30)
[2016-09-25] MEDS ORDERED: POTASSIUM CHL 20 Meq TABLET PO PRN (13:30)
[2016-09-25] MEDS ORDERED: KETOROLAC TROMETH 30 MG/ML 1ML VIAL IV PRN (13:30)
[2016-09-25] MEDS ORDERED: ISOSORBIDE MONONITRATE 60 MG TAB PO ONE (13:45)
[2016-09-25] MEDS: SODIUM CHLORIDE 0.9% 500 ML IV SCH (13:53)
[2016-09-25] MEDS ORDERED: ALBUMIN 25% 50 ML IV ONE ×2 (13:54→14:15)
[2016-09-25] MEDS ORDERED: ALBUMIN 5% 250 ML IV ONE ×2 (13:54→14:15)
[2016-09-25] MEDS ORDERED: FUROSEMIDE 40 MG TAB PO SCH (18:00)
[2016-09-25] MEDS ORDERED: ALBUMIN 5% IV ONE (18:00)
[2016-09-25] MEDS: AMIODARONE HCL 900 MG in DEXTROSE 500 ML IV SCH (20:03)
[2016-09-25] MEDS: ATORVASTATIN 20 MG TAB PO SCH (21:25)
[2016-09-26] VITALS (76 sets, daily range): BP systolic 87–132; BP diastolic 40–87
[2016-09-26] MEDS: OXYCODONE W/ ACETAMINOPHEN 5/325MG TABLET PO PRN ×3 (02:18→21:00)
[2016-09-26 03:55] LABS: Basophils # (auto) 0 uL; Basophils % (auto) 0.2 % (0.0-2.0); Eosinophils # (auto) 0.1 uL; Eosinophils % (auto) 0.8 % (0.0-7.0); Hematocrit 33.7 % (41.0-53.0); Hemoglobin 11.1 g/dL (13.5-17.5); Lymphocytes % (auto) 18.5 % (10.0-50.0); Mean Corpuscular Hemoglobin 32.5 pg (28.0-32.0); Mean Corpuscular Hgb Conc. 33.1 g/dL (32.0-36.0); Mean Corpuscular Volume 98.3 fL (80.0-100.0); Mean Platelet Volume 7.3 fL (7.4-10.4); Monocytes # (auto) 0.7 uL; Monocytes % (auto) 6.8 % (0.0-12.0); Neutrophils # (auto) 8.1 uL; Neutrophils % (auto) 73.7 % (37.0-80.0); Platelet Count (auto) 283 10^3/uL (140-450); Red Cell Distribution Width 13.2 % (11.6-16.0)
[2016-09-26] MEDS: SODIUM CHLORIDE 0.9% 1,000 ML IV SCH (04:30)
[2016-09-26 04:50] LABS: Albumin 3.6 g/dL (3.4-5.0); BUN/Creatinine Ratio 29.8; Bilirubin, Total 0.5 mg/dL (0.2-1.0); Calcium 8.2 mg/dL (8.5-10.1); Magnesium 2.5 mg/dL (1.6-2.6); Potassium 3.9 mmol/L (3.5-5.1); Total Protein 6.1 g/dL (6.4-8.2)
[2016-09-26] MEDS: ACETYLCYSTEINE 10 %(100MG/ML) SOL 4ML NEB SCH ×3 (06:31→22:43)
[2016-09-26] MEDS: IPRATROPIUM BROM 0.5 MG/2.5ML INH SOL NEB SCH ×4 (06:31→22:43)
[2016-09-26] MEDS: Boost Glucose Control 8 Ounces PO SCH ×3 (08:00→18:00)
[2016-09-26] MEDS ORDERED: CALCIUM GLUC 4.65 MEQ/10ML 4.65 MEQ in SODIUM CHL 0.9% 50 ML IV ONE (08:15)
[2016-09-26] MEDS: DOCUSATE SOD 100 MG CAP PO SCH ×2 (10:00→22:00)
[2016-09-26] MEDS: NITROGLYCERIN 0.4MG/HR TOPICAL PATCH TD SCH (10:16)
[2016-09-26] MEDS: PANTOPRAZOLE 40 MG TAB PO SCH (10:17)
[2016-09-26] MEDS: METOPROLOL TARTRATE 25 MG TAB PO SCH ×2 (10:17→22:00)
[2016-09-26] MEDS: CHLORHEXIDINE 0.12% ORAL rinse 473ML MT SCH ×2 (10:17→22:00)
[2016-09-26] MEDS: ASPirin 81 mg TAB PO SCH (10:17)
[2016-09-26] MEDS: ASCORBIC ACID 500 MG TAB PO SCH ×2 (10:17→22:00)
[2016-09-26] MEDS: ISOSORBIDE MONONITRATE 60 MG TAB PO SCH (10:17)
[2016-09-26] MEDS: SODIUM CHLORIDE 0.9% 500 ML IV SCH (13:53)
[2016-09-26] MEDS: AMIODARONE HCL 900 MG in DEXTROSE 500 ML IV SCH (20:03)
[2016-09-26] MEDS: ATORVASTATIN 20 MG TAB PO SCH (22:00)
[2016-09-27] VITALS (29 sets, daily range): BP systolic 102–128; BP diastolic 42–82
[2016-09-27] MEDS: SODIUM CHLORIDE 0.9% 1,000 ML IV SCH (00:30)
[2016-09-27 03:51] LABS: Basophils # (auto) 0 uL; Basophils % (auto) 0.4 % (0.0-2.0); Eosinophils # (auto) 0.3 uL; Eosinophils % (auto) 4.2 % (0.0-7.0); Hematocrit 33.1 % (41.0-53.0); Hemoglobin 11.1 g/dL (13.5-17.5); Lymphocytes # (auto) 1.8 uL; Lymphocytes % (auto) 23.8 % (10.0-50.0); Mean Corpuscular Hgb Conc. 33.5 g/dL (32.0-36.0); Mean Corpuscular Volume 98.4 fL (80.0-100.0); Mean Platelet Volume 7.4 fL (7.4-10.4); Monocytes # (auto) 0.5 uL; Monocytes % (auto) 6.7 % (0.0-12.0); Neutrophils % (auto) 64.9 % (37.0-80.0); Platelet Count (auto) 262 10^3/uL (140-450); White Blood Cell 7.7 10^3/uL (4.4-10.8)
[2016-09-27 04:13] LABS: Albumin 3.1 g/dL (3.4-5.0); Calcium 8.1 mg/dL (8.5-10.1); Magnesium 2.4 mg/dL (1.6-2.6)
[2016-09-27 04:14] LABS: BUN/Creatinine Ratio 35.3
[2016-09-27 04:17] LABS: Bilirubin, Total 0.5 mg/dL (0.2-1.0); Total Protein 5.4 g/dL (6.4-8.2)
[2016-09-27] MEDS: IPRATROPIUM BROM 0.5 MG/2.5ML INH SOL NEB SCH ×4 (06:09→22:26)
[2016-09-27] MEDS: ACETYLCYSTEINE 10 %(100MG/ML) SOL 4ML NEB SCH ×3 (06:09→22:26)
[2016-09-27] MEDS: OXYCODONE W/ ACETAMINOPHEN 5/325MG TABLET PO PRN (06:45)
[2016-09-27] MEDS: Boost Glucose Control 8 Ounces PO SCH ×3 (08:00→18:32)
[2016-09-27] MEDS ORDERED: CALCIUM GLUC 4.65 MEQ/10ML 4.65 MEQ in SODIUM CHL 0.9% 50 ML IV ONE (08:00)
[2016-09-27] MEDS: CHLORHEXIDINE 0.12% ORAL rinse 473ML MT SCH ×2 (10:00→21:01)
[2016-09-27] MEDS: POTASSIUM CHL 20 Meq TABLET PO SCH ×2 (10:46→21:01)
[2016-09-27] MEDS: ASCORBIC ACID 500 MG TAB PO SCH ×2 (10:46→21:01)
[2016-09-27] MEDS: FUROSEMIDE 40 MG TAB PO SCH (10:47)
[2016-09-27] MEDS: DOCUSATE SOD 100 MG CAP PO SCH ×2 (10:47→21:01)
[2016-09-27] MEDS: ISOSORBIDE MONONITRATE 60 MG TAB PO SCH (10:47)
[2016-09-27] MEDS: METOPROLOL TARTRATE 25 MG TAB PO SCH ×2 (10:48→21:02)
[2016-09-27] MEDS: ASPirin 81 mg TAB PO SCH (10:48)
[2016-09-27] MEDS: PANTOPRAZOLE 40 MG TAB PO SCH (10:48)
[2016-09-27] MEDS: NITROGLYCERIN 0.4MG/HR TOPICAL PATCH TD SCH (10:48)
[2016-09-27] MEDS: ENOXAPARIN SOD 30 MG/0.3 ML SYRINGE SC SCH (10:49)
[2016-09-27] MEDS: SODIUM CHLORIDE 0.9% 500 ML IV SCH (13:53)
[2016-09-27] MEDS: AMIODARONE HCL 900 MG in DEXTROSE 500 ML IV SCH (20:03)
[2016-09-27] MEDS: ATORVASTATIN 20 MG TAB PO SCH (21:01)
[2016-09-28] VITALS (25 sets, daily range): BP systolic 98–130; BP diastolic 47–93
[2016-09-28] MEDS: OXYCODONE W/ ACETAMINOPHEN 5/325MG TABLET PO PRN ×3 (02:27→22:48)
[2016-09-28 04:12] LABS: Basophils # (auto) 0 uL; Basophils % (auto) 0.4 % (0.0-2.0); Eosinophils # (auto) 0.5 uL; Eosinophils % (auto) 6.2 % (0.0-7.0); Hematocrit 33.6 % (41.0-53.0); Hemoglobin 11.4 g/dL (13.5-17.5); Lymphocytes # (auto) 1.4 uL; Lymphocytes % (auto) 17.9 % (10.0-50.0); Mean Corpuscular Hgb Conc. 33.8 g/dL (32.0-36.0); Mean Corpuscular Volume 97.6 fL (80.0-100.0); Mean Platelet Volume 7.9 fL (7.4-10.4); Monocytes # (auto) 0.6 uL; Monocytes % (auto) 7.9 % (0.0-12.0); Neutrophils # (auto) 5.1 uL; Neutrophils % (auto) 67.6 % (37.0-80.0); Platelet Count (auto) 306 10^3/uL (140-450); Red Cell Distribution Width 12.8 % (11.6-16.0); White Blood Cell 7.6 10^3/uL (4.4-10.8)
[2016-09-28 04:32] LABS: Albumin 3.1 g/dL (3.4-5.0); BUN/Creatinine Ratio 29.5; Calcium 7.9 mg/dL (8.5-10.1); Magnesium 2.3 mg/dL (1.6-2.6); Potassium 4.2 mmol/L (3.5-5.1)
[2016-09-28 04:33] LABS: Bilirubin, Total 0.5 mg/dL (0.2-1.0); Total Protein 5.7 g/dL (6.4-8.2)
[2016-09-28] MEDS: ACETYLCYSTEINE 10 %(100MG/ML) SOL 4ML NEB SCH ×2 (07:24→19:30)
[2016-09-28] MEDS: IPRATROPIUM BROM 0.5 MG/2.5ML INH SOL NEB SCH ×4 (07:24→19:30)
[2016-09-28] MEDS: Boost Glucose Control 8 Ounces PO SCH ×3 (08:00→17:52)
[2016-09-28] MEDS ORDERED: DOCU100C8 PO (08:24)
[2016-09-28] MEDS ORDERED: METO25TA3 PO (08:24)
[2016-09-28] MEDS ORDERED: ISO60SRT PO (08:24)
[2016-09-28] MEDS ORDERED: FURO40TA4 PO (08:24)
[2016-09-28] MEDS ORDERED: POTA20TA53 PO (08:24)
[2016-09-28] MEDS ORDERED: CALCIUM GLUC 4.65 MEQ/10ML 4.65 MEQ in SODIUM CHL 0.9% 50 ML IV ONE (09:00)
[2016-09-28] MEDS: ENOXAPARIN SOD 30 MG/0.3 ML SYRINGE SC SCH (09:40)
[2016-09-28] MEDS: PANTOPRAZOLE 40 MG TAB PO SCH (09:41)
[2016-09-28] MEDS: DOCUSATE SOD 100 MG CAP PO SCH ×2 (09:41→22:05)
[2016-09-28] MEDS: ASCORBIC ACID 500 MG TAB PO SCH ×2 (09:41→22:05)
[2016-09-28] MEDS: ASPirin 81 mg TAB PO SCH (09:42)
[2016-09-28] MEDS: FUROSEMIDE 40 MG TAB PO SCH (09:42)
[2016-09-28] MEDS: ISOSORBIDE MONONITRATE 60 MG TAB PO SCH (09:42)
[2016-09-28] MEDS: POTASSIUM CHL 20 Meq TABLET PO SCH ×2 (09:42→22:06)
[2016-09-28] MEDS: METOPROLOL TARTRATE 25 MG TAB PO SCH ×2 (09:43→22:06)
[2016-09-28] MEDS: CHLORHEXIDINE 0.12% ORAL rinse 473ML MT SCH ×2 (09:46→22:05)
[2016-09-28] MEDS: AMIODARONE HCL 900 MG in DEXTROSE 500 ML IV SCH (20:03)
[2016-09-28] MEDS: ATORVASTATIN 20 MG TAB PO SCH (22:05)
[2016-09-29] VITALS (22 sets, daily range): BP systolic 93–148; BP diastolic 53–72
[2016-09-29 03:57] LABS: Basophils # (auto) 0 uL; Basophils % (auto) 0.6 % (0.0-2.0); Eosinophils # (auto) 0.5 uL; Eosinophils % (auto) 5.8 % (0.0-7.0); Hematocrit 40.3 % (41.0-53.0); Hemoglobin 13.7 g/dL (13.5-17.5); Lymphocytes # (auto) 1.4 uL; Lymphocytes % (auto) 16.6 % (10.0-50.0); Mean Corpuscular Hemoglobin 33.3 pg (28.0-32.0); Mean Platelet Volume 7.8 fL (7.4-10.4); Monocytes # (auto) 0.9 uL; Monocytes % (auto) 9.9 % (0.0-12.0); Neutrophils # (auto) 5.8 uL; Neutrophils % (auto) 67.1 % (37.0-80.0); Platelet Count (auto) 310 10^3/uL (140-450); Red Cell Distribution Width 13.1 % (11.6-16.0); White Blood Cell 8.6 10^3/uL (4.4-10.8)
[2016-09-29 04:13] LABS: Calcium 8.1 mg/dL (8.5-10.1); Magnesium 2.3 mg/dL (1.6-2.6); Potassium 4.4 mmol/L (3.5-5.1)
[2016-09-29 04:16] LABS: BUN/Creatinine Ratio 21.7
[2016-09-29] MEDS: OXYCODONE W/ ACETAMINOPHEN 5/325MG TABLET PO PRN ×3 (05:02→18:28)
[2016-09-29] MEDS: IPRATROPIUM BROM 0.5 MG/2.5ML INH SOL NEB SCH ×5 (05:58→22:26)
[2016-09-29] MEDS: ACETYLCYSTEINE 10 %(100MG/ML) SOL 4ML NEB SCH ×3 (05:59→22:25)
[2016-09-29] MEDS: Boost Glucose Control 8 Ounces PO SCH ×3 (08:00→17:37)
[2016-09-29] MEDS: METOPROLOL TARTRATE 25 MG TAB PO SCH ×2 (10:00→21:58)
[2016-09-29] MEDS: ISOSORBIDE MONONITRATE 60 MG TAB PO SCH (10:00)
[2016-09-29] MEDS: POTASSIUM CHL 20 Meq TABLET PO SCH ×2 (10:05→21:57)
[2016-09-29] MEDS: ENOXAPARIN SOD 30 MG/0.3 ML SYRINGE SC SCH (10:06)
[2016-09-29] MEDS: CHLORHEXIDINE 0.12% ORAL rinse 473ML MT SCH ×2 (10:07→21:57)
[2016-09-29] MEDS: PANTOPRAZOLE 40 MG TAB PO SCH (10:07)
[2016-09-29] MEDS: ASPirin 81 mg TAB PO SCH (10:07)
[2016-09-29] MEDS: FUROSEMIDE 40 MG TAB PO SCH (10:07)
[2016-09-29] MEDS: DOCUSATE SOD 100 MG CAP PO SCH ×2 (10:07→21:57)
[2016-09-29] MEDS: AMIODARONE HCL 900 MG in DEXTROSE 500 ML IV SCH (20:03)
[2016-09-29] MEDS: ATORVASTATIN 20 MG TAB PO SCH (21:57)
[2016-09-30] VITALS (13 sets, daily range): BP systolic 95–129; BP diastolic 52–70
[2016-09-30] MEDS: OXYCODONE W/ ACETAMINOPHEN 5/325MG TABLET PO PRN ×2 (01:12→14:09)
[2016-09-30 04:07] LABS: BUN/Creatinine Ratio 26.3; Calcium 8.6 mg/dL (8.5-10.1); Magnesium 2.3 mg/dL (1.6-2.6); Potassium 4.4 mmol/L (3.5-5.1)
[2016-09-30] MEDS: IPRATROPIUM BROM 0.5 MG/2.5ML INH SOL NEB SCH ×3 (06:16→14:24)
[2016-09-30] MEDS: ACETYLCYSTEINE 10 %(100MG/ML) SOL 4ML NEB SCH ×2 (06:16→14:24)
[2016-09-30] MEDS: ASPirin 81 mg TAB PO SCH (09:39)
[2016-09-30] MEDS: DOCUSATE SOD 100 MG CAP PO SCH (09:39)
[2016-09-30] MEDS: METOPROLOL TARTRATE 25 MG TAB PO SCH (09:40)
[2016-09-30] MEDS: ISOSORBIDE MONONITRATE 60 MG TAB PO SCH (09:40)
[2016-09-30] MEDS: POTASSIUM CHL 20 Meq TABLET PO SCH (09:40)
[2016-09-30] MEDS: ENOXAPARIN SOD 30 MG/0.3 ML SYRINGE SC SCH (09:41)
[2016-09-30] MEDS: PANTOPRAZOLE 40 MG TAB PO SCH (09:41)
[2016-09-30] MEDS: Boost Glucose Control 8 Ounces PO SCH ×2 (09:45→14:08)
[2016-09-30] MEDS: CHLORHEXIDINE 0.12% ORAL rinse 473ML MT SCH (09:45)
[2016-09-30] MEDS: FUROSEMIDE 40 MG TAB PO SCH (09:57)
== END 2016-09-30 17:03 | disposition home or self-care (01) | DRG 234 ==
LOC: EDBD 04:47 → ER 04:53 → TELE 04:54 → TELE-EAST 17:19 → ICU WEST 09-23 15:25
PROVIDERS: ATTEND Internal Medicine Pulmonary Disease
PROC: B2111ZZ Fluoroscopy of Multiple Coronary Arteries using Low Osmolar Contrast (ICD-10-PCS; 2016-09-20)
PROC: 4A023N7 Measurement of Cardiac Sampling and Pressure, Left Heart, Percutaneous Approach (ICD-10-PCS; 2016-09-20)
PROC: B2151ZZ Fluoroscopy of Left Heart using Low Osmolar Contrast (ICD-10-PCS; 2016-09-20)
PROC: 02100AW Bypass Coronary Artery, One Artery from Aorta with Autologous Arterial Tissue, Open Approach (ICD-10-PCS; 2016-09-23)
PROC: 021009W Bypass Coronary Artery, One Artery from Aorta with Autologous Venous Tissue, Open Approach (ICD-10-PCS; 2016-09-23)
PROC: 03BC4ZZ Excision of Left Radial Artery, Percutaneous Endoscopic Approach (ICD-10-PCS; 2016-09-23)
PROC: 06BP4ZZ Excision of Right Saphenous Vein, Percutaneous Endoscopic Approach (ICD-10-PCS; 2016-09-23)
PROC: 5A1221Z Performance of Cardiac Output, Continuous (ICD-10-PCS; 2016-09-23)
PROC: 02100Z9 Bypass Coronary Artery, One Artery from Left Internal Mammary, Open Approach (ICD-10-PCS; principal; 2016-09-23 07:43)
DX: I25.110 Atherosclerotic heart disease of native coronary artery with unstable angina pectoris (principal); J98.11 Atelectasis; K80.00 Calculus of gallbladder with acute cholecystitis without obstruction; I12.9 Hypertensive chronic kidney disease with stage 1 through stage 4 chronic kidney disease, or unspecified chronic kidney disease; N18.3 Chronic kidney disease, stage 3 (moderate); E87.6 Hypokalemia; Z95.5 Presence of coronary angioplasty implant and graft; Z82.49 Family history of ischemic heart disease and other diseases of the circulatory system; Z83.3 Family history of diabetes mellitus; Z95.1 Presence of aortocoronary bypass graft; Z79.02 Long term (current) use of antithrombotics/antiplatelets; Z79.899 Other long term (current) drug therapy
CPT/HCPCS: 36415; 36600; 71010; 71020; 71275; 74176; 76705; 78452; 80048; 80053; 80061; 81001; 82150; 82805; 82962; 83036; 83690; 83735; 83880; 84100; 84132; 84443; 84484; 85007; 85025; 85027; 85379; 85576; 85610; 85730; 86850; 86900; 86901; 86920; 87040; 87070; 87081; 87086; 87205; 93005; 93017; 93306; 93886; 93970; 94002; 94003; 94640; 94660; 94667; 94668; 99152; A4565; C1751; C1768; C9113; J0131; J0153; J0171; J0330; J0690; J0696; J1100; J1642; J1644; J1815; J1885; J2250; J2405; J2440; J2704; J2720; J3480; J3490; J7060; Q9967

== ENCOUNTER → 2016-11-29 | Outpatient (CLI) | payer MEDICARE, OTHER ==
[~2016-11-29] MED LIST: ASPI-231 PO; ATOR40TA52 PO; DOCU100C8 PO; FURO40TA4 PO; ISO60SRT PO; METO25TA3 PO; POTA20TA53 PO
[2016-11-29 08:02] LABS: Basophils # (auto) 0 uL; Basophils % (auto) 0.4 % (0.0-2.0); Eosinophils # (auto) 0.4 uL; Eosinophils % (auto) 5.3 % (0.0-7.0); Hematocrit 52.2 % (41.0-53.0); Hemoglobin 17.8 g/dL (13.5-17.5); Lymphocytes # (auto) 2.3 uL; Lymphocytes % (auto) 31.2 % (10.0-50.0); Mean Corpuscular Hemoglobin 32.3 pg (28.0-32.0); Mean Corpuscular Hgb Conc. 34.1 g/dL (32.0-36.0); Mean Corpuscular Volume 94.8 fL (80.0-100.0); Monocytes # (auto) 0.5 uL; Neutrophils # (auto) 4.2 uL; Neutrophils % (auto) 56.1 % (37.0-80.0); Platelet Count (auto) 214 10^3/uL (140-450); Red Cell Distribution Width 13.8 % (11.6-16.0); White Blood Cell 7.5 10^3/uL (4.4-10.8)
[2016-11-29 08:16] LABS: Urine Bilirubin Negative (Negative); Urine Blood TRACE /uL (Negative); Urine Color Yellow (Yellow); Urine Glucose Normal (Normal); Urine Ketone Negative (Negative); Urine Mucus FEW (None Seen); Urine Nitrite Negative (Negative); Urine RBC 2 /hpf (0 - 3); Urine Squamous Epithelial Cell FEW /hpf (<5); Urine Urobilinogen Normal (Negative)
[2016-11-29 08:30] LABS: Albumin 4.2 g/dL (3.4-5.0); BUN/Creatinine Ratio 14.2; Calcium 9.1 mg/dL (8.5-10.1); Potassium 4.2 mmol/L (3.5-5.1); Total Protein 7.8 g/dL (6.4-8.2)
== END | disposition home or self-care (01) ==
LOC: LAB 07:07
DX: I10 Essential (primary) hypertension (principal); Z53.20 Procedure and treatment not carried out because of patient's decision for unspecified reasons; Z83.3 Family history of diabetes mellitus
CPT/HCPCS: 36415; 80053; 80061; 81001; 83036; 84443; 85025

== ENCOUNTER → 2016-12-02 | Outpatient (CLI) | payer MEDICARE, OTHER | END | disposition home or self-care (01) | LOC: LAB 12:39 | DX: I10 Essential (primary) hypertension (principal); Z53.20 Procedure and treatment not carried out because of patient's decision for unspecified reasons; Z83.3 Family history of diabetes mellitus | CPT/HCPCS: 82270 ==

== ENCOUNTER 2017-01-08 07:26 | Inpatient (IN) | payer MEDICARE, OTHER ==
[2017-01-06 16:46] LABS: Basophils # (auto) 0 uL; Basophils % (auto) 0.3 % (0.0-2.0); CONDITION Y; Eosinophils # (auto) 0.3 uL; Hematocrit 49.8 % (41.0-53.0); Lymphocytes # (auto) 2.6 uL; Lymphocytes % (auto) 39.7 % (10.0-50.0); Mean Corpuscular Hemoglobin 32.1 pg (28.0-32.0); Mean Corpuscular Hgb Conc. 34.1 g/dL (32.0-36.0); Mean Corpuscular Volume 94.1 fL (80.0-100.0); Mean Platelet Volume 8.5 fL (7.4-10.4); Monocytes # (auto) 0.7 uL; Monocytes % (auto) 11.4 % (0.0-12.0); Neutrophils # (auto) 2.9 uL; Neutrophils % (auto) 43.6 % (37.0-80.0); Platelet Count (auto) 225 10^3/uL (140-450); Red Cell Distribution Width 13.5 % (11.6-16.0); White Blood Cell 6.5 10^3/uL (4.4-10.8)
[2017-01-06 16:50] LABS: Urine Bilirubin Negative (Negative); Urine Blood Negative /uL (Negative); Urine Ca Oxalate Crystal FEW (None Seen); Urine Color Yellow (Yellow); Urine Glucose Normal (Normal); Urine Ketone Negative (Negative); Urine Nitrite Negative (Negative); Urine RBC 1 /hpf (0 - 3); Urine Urobilinogen Normal (Negative); Urine pH 5.5 (5.0-8.0)
[2017-01-06 16:58] LABS: Potassium 3.7 mmol/L (3.5-5.1)
[2017-01-06 17:01] LABS: INR 1.02 (0.9-1.15); Partial Thromboplastin Time 29.1 sec (22.64-33.71); Prothrombin Time 11.1 sec (9.37-12.3)
[2017-01-06 17:03] LABS: Albumin 3.9 g/dL (3.4-5.0); BUN/Creatinine Ratio 16.1; Calcium 8.7 mg/dL (8.5-10.1)
[2017-01-06 17:06] LABS: Bilirubin, Total 0.7 mg/dL (0.2-1.0); Total Protein 7.3 g/dL (6.4-8.2)
[~2017-01-08] VITALS: Ht 170.2 cm; Wt 80.5 kg
[~2017-01-08 07:26] MED LIST changes: -DOCU100C8 PO; -FURO40TA4 PO; -POTA20TA53 PO
[2017-01-08] MEDS ORDERED: ceFAZolin 1GM/50ML D5W 50 ML IV ONE (08:38)
[2017-01-08] MEDS ORDERED: POVIDONE IODINE 10 % TOPICAL OINT 30GM TOP ONE (10:44)
[2017-01-08] MEDS ORDERED: ROCURONIUM 10MG/ML 10ML VIAL IV ONE (10:58)
[2017-01-08] MEDS ORDERED: MIDAZOLAM HCL 1MG/1ML-2 ML VIAL ONE (11:01)
[2017-01-08] MEDS ORDERED: fentaNYL CITRATE 5 ML ONE (11:01)
[2017-01-08] MEDS ORDERED: HYDROmorphone HCL 2 MG/ML VL ONE (12:14)
[2017-01-08] MEDS ORDERED: ONDANSETRON HCL 4 MG/2 ML VIAL IV ONE (12:30)
[2017-01-08] MEDS ORDERED: ePHEDrine SULFATE 50 MG/ML AMP IV PRN (12:30)
[2017-01-08] MEDS: HYDROmorphone HCL 2 MG/ML VL IV PRN ×3 (12:39→17:05)
[2017-01-08] MEDS ORDERED: NITROGLYCERIN 0.4 MG SL TAB SL PRN (13:15)
[2017-01-08] MEDS ORDERED: MORPHINE SULF INJ 2 MG/ML SYRINGE 1ML IV PRN (13:15)
[2017-01-08 13:40] VITALS: BP 137/91
[2017-01-08] MEDS ORDERED: ONDANSETRON HCL 4 MG/2 ML VIAL IV PRN (15:30)
[2017-01-08] MEDS ORDERED: HYDROcodone-ACET 5/325MG TAB PO PRN (15:30)
[2017-01-08] MEDS ORDERED: ENALAPRIL MALEATE 2.5 MG TAB PO ONE (15:30)
[2017-01-08 17:00] VITALS: BP 129/89
[2017-01-08] MEDS: hydrALAZINE HCL 20 MG/ML VL IV PRN (17:05)
[2017-01-08] MEDS: MORPHINE SULF INJ 2 MG/ML SYRINGE 1ML IV PRN (20:11)
[2017-01-08 21:27] VITALS: BP 127/85
[2017-01-08] MEDS: METOPROLOL TARTRATE 25 MG TAB PO SCH (22:13)
[2017-01-09] VITALS (7 sets, daily range): BP systolic 103–127; BP diastolic 68–90
[2017-01-09] MEDS: MORPHINE SULF INJ 2 MG/ML SYRINGE 1ML IV PRN ×3 (00:38→13:18)
[2017-01-09 06:33] LABS: Basophils # (auto) 0 uL; Basophils % (auto) 0.1 % (0.0-2.0); CONDITION Y; Eosinophils # (auto) 0.1 uL; Eosinophils % (auto) 1.5 % (0.0-7.0); Hematocrit 44.1 % (41.0-53.0); Hemoglobin 15.4 g/dL (13.5-17.5); Lymphocytes # (auto) 2.3 uL; Mean Corpuscular Hemoglobin 32.6 pg (28.0-32.0); Mean Corpuscular Volume 93.3 fL (80.0-100.0); Monocytes # (auto) 0.8 uL; Monocytes % (auto) 9.4 % (0.0-12.0); Platelet Count (auto) 196 10^3/uL (140-450); Red Cell Distribution Width 13.4 % (11.6-16.0); White Blood Cell 8.3 10^3/uL (4.4-10.8)
[2017-01-09 07:02] LABS: Potassium 4.1 mmol/L (3.5-5.1)
[2017-01-09 07:14] LABS: Albumin 3.3 g/dL (3.4-5.0); BUN/Creatinine Ratio 18.6; Calcium 8.3 mg/dL (8.5-10.1)
[2017-01-09 07:17] LABS: Bilirubin, Total 1.6 mg/dL (0.2-1.0); Total Protein 6.4 g/dL (6.4-8.2)
[2017-01-09] MEDS: ISOSORBIDE MONONITRATE 60 MG TAB PO SCH (10:30)
[2017-01-09] MEDS: METOPROLOL TARTRATE 25 MG TAB PO SCH ×2 (10:30→22:00)
[2017-01-09] MEDS: ENALAPRIL MALEATE 2.5 MG TAB PO SCH (10:31)
[2017-01-09] MEDS ORDERED: ASPirin 81 mg TAB PO ONE (11:15)
[2017-01-10 05:46] VITALS: BP 106/67
[2017-01-10 06:05] LABS: Basophils # (auto) 0 uL; Basophils % (auto) 0.2 % (0.0-2.0); CONDITION Y; Eosinophils # (auto) 0.4 uL; Eosinophils % (auto) 5.3 % (0.0-7.0); Hematocrit 44.4 % (41.0-53.0); Hemoglobin 15.2 g/dL (13.5-17.5); Lymphocytes # (auto) 1.9 uL; Lymphocytes % (auto) 25.8 % (10.0-50.0); Mean Corpuscular Hemoglobin 32.2 pg (28.0-32.0); Mean Corpuscular Hgb Conc. 34.3 g/dL (32.0-36.0); Mean Corpuscular Volume 93.9 fL (80.0-100.0); Monocytes # (auto) 0.6 uL; Monocytes % (auto) 8.3 % (0.0-12.0); Neutrophils # (auto) 4.5 uL; Neutrophils % (auto) 60.4 % (37.0-80.0); Platelet Count (auto) 197 10^3/uL (140-450); Red Cell Distribution Width 13.2 % (11.6-16.0); White Blood Cell 7.4 10^3/uL (4.4-10.8)
[2017-01-10 09:24] VITALS: BP 103/66
[2017-01-10] MEDS: METOPROLOL TARTRATE 25 MG TAB PO SCH (10:00)
[2017-01-10] MEDS ORDERED: ASPirin 81 mg TAB PO SCH (10:00)
[2017-01-10] MEDS: ISOSORBIDE MONONITRATE 60 MG TAB PO SCH (10:00)
[2017-01-10] MEDS: ENALAPRIL MALEATE 2.5 MG TAB PO SCH (10:00)
[2017-01-10 11:45] VITALS: BP 103/66
[2017-01-10 13:51] VITALS: BP 114/67
== END 2017-01-10 13:35 | disposition home or self-care (01) | DRG 263 ==
LOC: SUR 07:26 → TELE-CENTR 07:27 → CENTRAL 01-09 11:57
PROVIDERS: ADMIT Surgery; ATTEND Internal Medicine
PROC: 0DNS4ZZ (ICD-10-PCS; 2017-01-08)
PROC: 0FT44ZZ Resection of Gallbladder, Percutaneous Endoscopic Approach (ICD-10-PCS; principal; 2017-01-08 10:58)
DX: K80.12 Calculus of gallbladder with acute and chronic cholecystitis without obstruction (principal); I10 Essential (primary) hypertension; I25.10 Atherosclerotic heart disease of native coronary artery without angina pectoris; E78.5 Hyperlipidemia, unspecified; Z95.1 Presence of aortocoronary bypass graft
CPT/HCPCS: 36415; 80053; 81001; 82247; 85025; 85610; 85730; 86850; 86900; 86901; J0690; J2250

== ENCOUNTER → 2017-07-08 | Outpatient (CLI) | payer MEDICARE, OTHER ==
[2017-07-08 10:31] VITALS: BP 142/80
== END | disposition home or self-care (01) ==
LOC: XY 08:08
PROVIDERS: ATTEND Internal Medicine
DX: I25.10 Atherosclerotic heart disease of native coronary artery without angina pectoris (principal); Z95.1 Presence of aortocoronary bypass graft
CPT/HCPCS: 78452; 93017; 93306; A9500

== ENCOUNTER → 2018-06-09 | Outpatient (CLI) | payer MEDICARE, OTHER ==
[~2018-06-09] MED LIST changes: -METO25TA3 PO; +METO25TA4 PO
[2018-06-09 08:36] LABS: Basophils # (auto) 0 uL; Lymphocytes # (auto) 2.7 uL; Monocytes # (auto) 0.5 uL; Nucleated Red Blood Cells % 0.1 %; Platelet Count (auto) 167 10^3/uL (140-450); White Blood Cell 6.2 10^3/uL (4.4-10.8)
[2018-06-09 08:39] LABS: Basophils % (auto) 0.6 % (0.0-2.0); Eosinophils # (auto) 0.3 uL; Eosinophils % (auto) 4.2 % (0.0-7.0); Hematocrit 51.9 % (41.0-53.0); Hemoglobin 18.1 g/dL (13.5-17.5); Mean Corpuscular Hemoglobin 33.8 pg (28.0-32.0); Mean Corpuscular Hgb Conc. 34.8 g/dL (32.0-36.0); Mean Corpuscular Volume 96.9 fL (80.0-100.0); Monocytes % (auto) 8.6 % (0.0-12.0); Neutrophils # (auto) 2.7 uL; Neutrophils % (auto) 43.6 % (37.0-80.0); Red Blood Cells 5.36 10^6/uL (4.5-5.90); Red Cell Distribution Width 13.1 % (11.8-14.3)
[2018-06-09 08:40] LABS: Urine Bacteria NONE SEEN /hpf (None Seen); Urine Blood Negative /uL (Negative); Urine Mucus FEW (None Seen); Urine Specific Gravity 1.025 (1.001-1.035); Urine WBC 2 /hpf (0 - 3)
[2018-06-09 09:59] LABS: Albumin 3.8 g/dL (3.4-5.0); Calcium 8.8 mg/dL (8.5-10.1)
[2018-06-09 10:04] LABS: BUN/Creatinine Ratio 10.1; Bilirubin, Total 0.9 mg/dL (0.2-1.0); Total Protein 6.9 g/dL (6.4-8.2)
== END | disposition home or self-care (01) ==
LOC: LAB 08:17
PROVIDERS: ATTEND Nurse Practitioner
DX: E78.5 Hyperlipidemia, unspecified (principal)
CPT/HCPCS: 36415; 80053; 80061; 81001; 84443; 85025

== ENCOUNTER → 2018-07-06 | Outpatient (CLI) | payer MEDICARE, OTHER ==
[2018-07-06 10:38] LABS: Urine Bacteria NONE SEEN /hpf (None Seen); Urine Blood Negative /uL (Negative); Urine Mucus FEW (None Seen); Urine Specific Gravity 1.027 (1.001-1.035); Urine WBC 3 /hpf (0 - 3)
[2018-07-06 10:40] LABS: White Blood Cell 6.7 10^3/uL (4.4-10.8)
[2018-07-06 10:43] LABS: Hemoglobin 18.8 g/dL (13.5-17.5); Mean Corpuscular Hgb Conc. 34.8 g/dL (32.0-36.0); Mean Corpuscular Volume 97.7 fL (80.0-100.0); Platelet Count (auto) 169 10^3/uL (140-450); Red Blood Cells 5.53 10^6/uL (4.5-5.90); Red Cell Distribution Width 12.9 % (11.8-14.3)
[2018-07-06 11:07] LABS: Band Neutrophils % (manual) 0; Basophils % (manual) 0 (0.0-2.0); Blast Cells 0; Metamyelocytes % 0; Myelocytes % 0; Promyelocytes % 0; Reactive Lymphocytes 0
[2018-07-06 11:37] LABS: Eosinophils % (manual) 4 (0-7); Lymphocytes % (manual) 43 (10.0-50.0); Monocytes % (manual) 7 (0-12)
[2018-07-06 11:43] LABS: Chloride 108 mmol/L (98-107); Potassium 4.2 mmol/L (3.5-5.1); Sodium 141 mmol/L (136-145)
[2018-07-06 11:52] LABS: Free T4 (Free Thyroxine) 1.13 ng/dL (0.89-1.76); Prostate Specific Antigen 0.58 ng/mL (0.0-4.0)
[2018-07-06 11:53] LABS: T3 Total 0.98 ng/mL (0.60-1.81)
[2018-07-06 12:01] LABS: Alanine Aminotransferase 44 U/L (16-61); Albumin 4.1 g/dL (3.4-5.0); Alkaline Phosphatase 72 U/L (45-117); Anion Gap 6 (5-15); Aspartate Aminotransferase 22 U/L (15-37); BUN/Creatinine Ratio 12.2; Bilirubin, Total 1.1 mg/dL (0.2-1.0); Blood Urea Nitrogen 16 mg/dL (7-18); CRP High Sensitivity 0.04 mg/dL (< 0.3); Calcium 9.1 mg/dL (8.5-10.1); Carbon Dioxide 27 mmol/L (21-32); Cholesterol 146 mg/dL (< 200); GFR Non-African American 58 mL/min; Glucose 92 mg/dL (74-106); HDL Cholesterol 37 mg/dL (40-59); LDL Cholesterol 87 mg/dL (< 100); Total Protein 7.6 g/dL (6.4-8.2); Triglycerides 222 mg/dL (< 150)
[2018-07-06 12:05] LABS: GFR African American > 60 mL/min
== END | disposition home or self-care (01) ==
LOC: LAB 09:12
PROVIDERS: ATTEND Internal Medicine
DX: I10 Essential (primary) hypertension (principal); N20.0 Calculus of kidney; E78.5 Hyperlipidemia, unspecified; I25.10 Atherosclerotic heart disease of native coronary artery without angina pectoris; Z79.899 Other long term (current) drug therapy; N40.0 Benign prostatic hyperplasia without lower urinary tract symptoms
CPT/HCPCS: 36415; 80053; 80061; 81001; 82306; 82607; 83036; 84153; 84439; 84443; 84480; 85007; 85027; 86141

== ENCOUNTER 2018-10-15 13:50 | Inpatient (IN) | payer MEDICARE, OTHER | END 2018-10-17 09:20 | disposition home or self-care (01) | LOC: CENTRAL 10-16 15:23 → ER 13:50 → OVERFLOW 20:30 → EAST 22:26 | DX: N13.6 Pyonephrosis (principal); N39.0 Urinary tract infection, site not specified ==

== ENCOUNTER → 2018-11-10 | Outpatient (CLI) | payer MEDICARE, OTHER ==
[~2018-11-10] MED LIST changes: +ENAL5TAB PO; -ISO60SRT PO; +TAM04C PO
[2018-11-10 09:06] LABS: Basophils # (auto) 0 uL; Basophils % (auto) 0.6 % (0.0-2.0); Eosinophils # (auto) 0.3 uL; Eosinophils % (auto) 5.6 % (0.0-7.0); Hemoglobin 17.1 g/dL (13.5-17.5); Lymphocytes # (auto) 2.9 uL; Lymphocytes % (auto) 46.4 % (10.0-50.0); Mean Corpuscular Hemoglobin 33.8 pg (28.0-32.0); Mean Corpuscular Hgb Conc. 34.8 g/dL (32.0-36.0); Monocytes # (auto) 0.4 uL; Monocytes % (auto) 7.1 % (0.0-12.0); Neutrophils # (auto) 2.5 uL; Neutrophils % (auto) 40.3 % (37.0-80.0); Nucleated Red Blood Cells % 0.2 %; Platelet Count (auto) 158 10^3/uL (140-450); Red Blood Cells 5.05 10^6/uL (4.5-5.90); Red Cell Distribution Width 12.9 % (11.8-14.3); White Blood Cell 6.3 10^3/uL (4.4-10.8)
[2018-11-10 09:27] LABS: Albumin 3.7 g/dL (3.4-5.0); Calcium 8.6 mg/dL (8.5-10.1); Potassium 3.9 mmol/L (3.5-5.1)
[2018-11-10 09:29] LABS: Urine Bacteria NONE SEEN /hpf (None Seen); Urine Blood Negative /uL (Negative); Urine Mucus FEW (None Seen); Urine WBC 3 /hpf (0 - 3)
[2018-11-10 09:41] LABS: BUN/Creatinine Ratio 10.1
[2018-11-10 09:43] LABS: Bilirubin, Total 0.8 mg/dL (0.2-1.0); Total Protein 6.7 g/dL (6.4-8.2)
== END | disposition home or self-care (01) ==
LOC: LAB 08:41
PROVIDERS: ATTEND Nurse Practitioner
DX: E78.5 Hyperlipidemia, unspecified (principal); N20.0 Calculus of kidney; N40.1 Benign prostatic hyperplasia with lower urinary tract symptoms
CPT/HCPCS: 36415; 80053; 80061; 81001; 84153; 85025

== ENCOUNTER → 2018-12-21 | Outpatient (CLI) | payer MEDICARE, OTHER ==
[2018-12-21 08:40] LABS: Basophils # (auto) 0.1 uL; Eosinophils # (auto) 0.2 uL; Eosinophils % (auto) 4.1 % (0.0-7.0); Hemoglobin 17.4 g/dL (13.5-17.5); Lymphocytes # (auto) 2.3 uL; Lymphocytes % (auto) 40.2 % (10.0-50.0); Mean Corpuscular Hemoglobin 33.5 pg (28.0-32.0); Mean Corpuscular Hgb Conc. 34.7 g/dL (32.0-36.0); Mean Corpuscular Volume 96.4 fL (80.0-100.0); Monocytes # (auto) 0.5 uL; Monocytes % (auto) 8.6 % (0.0-12.0); Neutrophils # (auto) 2.7 uL; Neutrophils % (auto) 46.1 % (37.0-80.0); Nucleated Red Blood Cells % 0.8 %; Platelet Count (auto) 154 10^3/uL (140-450); Red Blood Cells 5.19 10^6/uL (4.5-5.90); Red Cell Distribution Width 12.8 % (11.8-14.3); White Blood Cell 5.8 10^3/uL (4.4-10.8)
[2018-12-21 08:54] LABS: Urine Bacteria NONE SEEN /hpf (None Seen); Urine Blood Negative /uL (Negative); Urine Mucus FEW (None Seen); Urine Specific Gravity 1.025 (1.001-1.035); Urine WBC 2 /hpf (0 - 3)
[2018-12-21 09:04] LABS: Albumin 3.9 g/dL (3.4-5.0); Calcium 9.3 mg/dL (8.5-10.1); Potassium 4.5 mmol/L (3.5-5.1)
[2018-12-21 09:09] LABS: BUN/Creatinine Ratio 14.4; Total Protein 7.2 g/dL (6.4-8.2)
== END | disposition home or self-care (01) ==
LOC: LAB 07:34
PROVIDERS: ATTEND Nurse Practitioner
DX: E78.5 Hyperlipidemia, unspecified (principal)
CPT/HCPCS: 36415; 80053; 80061; 81001; 84443; 85025

== ENCOUNTER → 2019-08-10 | Outpatient (CLI) | payer MEDICARE, OTHER ==
[~2019-08-10] MED LIST changes: +METO25TA36 PO; -METO25TA4 PO
[2019-08-10 09:31] LABS: Urine WBC None Seen /hpf (0 - 3)
[2019-08-10 09:47] LABS: Basophils # (auto) 0 uL; Basophils % (auto) 0.5 % (0.0-2.0); Lymphocytes # (auto) 2.4 uL; Mean Corpuscular Hemoglobin 33.8 pg (28.0-32.0); Mean Corpuscular Hgb Conc. 35.3 g/dL (32.0-36.0)
[2019-08-10 09:49] LABS: Urine Bacteria NONE SEEN /hpf (None Seen); Urine Blood Negative /uL (Negative); Urine Mucus FEW (None Seen); Urine Specific Gravity 1.027 (1.001-1.035)
[2019-08-10 09:50] LABS: Eosinophils # (auto) 0.4 uL; Eosinophils % (auto) 5.6 % (0.0-7.0); Hematocrit 51.1 % (41.0-53.0); Lymphocytes % (auto) 36.8 % (10.0-50.0); Mean Corpuscular Volume 95.7 fL (80.0-100.0); Monocytes # (auto) 0.6 uL; Monocytes % (auto) 8.4 % (0.0-12.0); Neutrophils # (auto) 3.2 uL; Neutrophils % (auto) 48.7 % (37.0-80.0); Nucleated Red Blood Cells % 0.8 %; Platelet Count (auto) 143 10^3/uL (140-450); Red Blood Cells 5.34 10^6/uL (4.5-5.90); White Blood Cell 6.6 10^3/uL (4.4-10.8)
[2019-08-10 10:03] LABS: Potassium 3.9 mmol/L (3.5-5.1)
[2019-08-10 10:17] LABS: Albumin 3.5 g/dL (3.4-5.0); BUN/Creatinine Ratio 10.9; Calcium 8.9 mg/dL (8.5-10.1); Total Protein 6.9 g/dL (6.4-8.2)
== END | disposition home or self-care (01) ==
LOC: LAB 09:09
PROVIDERS: ATTEND Nurse Practitioner
DX: E78.5 Hyperlipidemia, unspecified (principal); K21.9 Gastro-esophageal reflux disease without esophagitis; R21 Rash and other nonspecific skin eruption; I10 Essential (primary) hypertension
CPT/HCPCS: 36415; 80053; 80061; 81001; 84443; 85025

== ENCOUNTER → 2019-11-16 | Emergency (ER) | payer MEDICARE, OTHER ==
[~2019-11-16] VITALS: Ht 170.2 cm; Wt 83.0 kg
[~2019-11-16] MED LIST changes: +KETOROLAC TROMETH 30 MG/ML 1ML VIAL IV ONE; +MORPHINE SULFATE 4 MG/ML SYR/VIAL IV ONE; +ONDANSETRON HCL 4 MG/2 ML VIAL IV ONE; +SODIUM CHLORIDE 0.9% 1,000 ML IVB ONE
[2019-11-16 14:04] LABS: Basophils # (auto) 0 10 ^3/uL (0-0.2); Basophils % (auto) 0.4 % (0.0-2.0); Eosinophils # (auto) 0 10 ^3/uL (0-0.8); Eosinophils % (auto) 0.4 % (0.0-7.0); Hematocrit 47.1 % (41.0-53.0); Hemoglobin 16.3 g/dL (13.5-17.5); Lymphocytes # (auto) 1.2 10 ^3/uL (0.4-5.4); Lymphocytes % (auto) 13.3 % (10.0-50.0); Mean Corpuscular Hemoglobin 33.1 pg (28.0-32.0); Mean Corpuscular Hgb Conc. 34.6 g/dL (32.0-36.0); Mean Corpuscular Volume 95.5 fL (80.0-100.0); Monocytes # (auto) 0.4 10 ^3/uL (0-1.3); Monocytes % (auto) 4.8 % (0.0-12.0); Neutrophils # (auto) 7.3 10 ^3/uL (1.6-8.6); Neutrophils % (auto) 81.1 % (37.0-80.0); Nucleated Red Blood Cells % 0.8 %; Platelet Count (auto) 131 10^3/uL (140-450); Red Blood Cells 4.93 10^6/uL (4.5-5.90); Red Cell Distribution Width 13.4 % (11.8-14.3)
[2019-11-16 14:20] LABS: Albumin 3.8 g/dL (3.4-5.0); Calcium 8.7 mg/dL (8.5-10.1); Potassium 3.7 mmol/L (3.5-5.1)
[2019-11-16 14:24] LABS: BUN/Creatinine Ratio 11.8; Bilirubin, Total 1.4 mg/dL (0.2-1.0)
[2019-11-16 17:14] LABS: Urine Bacteria NONE SEEN /hpf (None Seen); Urine Blood 1+ /uL (Negative); Urine Mucus FEW (None Seen); Urine Specific Gravity 1.024 (1.001-1.035); Urine Sperm PRESENT /hpf (None Seen); Urine WBC 2 /hpf (0 - 3)
[2019-11-16 18:16] VITALS: BP 109/60
== END | disposition home or self-care (01) ==
LOC: EDUNIT# 13:13 → ER 13:30 → EDBD 13:30
DX: N20.1 Calculus of ureter (principal); I10 Essential (primary) hypertension; I25.10 Atherosclerotic heart disease of native coronary artery without angina pectoris; E78.5 Hyperlipidemia, unspecified; Z90.49 Acquired absence of other specified parts of digestive tract; Z95.1 Presence of aortocoronary bypass graft; Z79.82 Long term (current) use of aspirin; Z79.899 Other long term (current) drug therapy
CPT/HCPCS: 36415; 74176; 80053; 81001; 85025; 96374; 96375; 99284; J1885; J2270; J2405; J7030

== ENCOUNTER → 2020-04-13 | Outpatient (CLI) | payer MEDICARE, OTHER ==
[~2020-04-13] MED LIST changes: -ENAL5TAB PO; +ENAL5TAB10 PO; -KETOROLAC TROMETH 30 MG/ML 1ML VIAL IV ONE; -MORPHINE SULFATE 4 MG/ML SYR/VIAL IV ONE; -ONDANSETRON HCL 4 MG/2 ML VIAL IV ONE; -SODIUM CHLORIDE 0.9% 1,000 ML IVB ONE
== END | disposition home or self-care (01) ==
LOC: XYW 07:39
PROVIDERS: ATTEND Internal Medicine
DX: I08.1 Rheumatic disorders of both mitral and tricuspid valves (principal); I25.10 Atherosclerotic heart disease of native coronary artery without angina pectoris; N18.1 Chronic kidney disease, stage 1
CPT/HCPCS: 93306

== ENCOUNTER → 2020-04-20 | Outpatient (CLI) | payer MEDICARE, OTHER ==
[~2020-04-20] VITALS: Ht 170.2 cm; Wt 83.0 kg
[~2020-04-20] MED LIST changes: +ADENOSINE 70 MG in GIVE UN-DILUTED 0 ML IV STA
== END | disposition home or self-care (01) ==
LOC: XY 07:49
PROVIDERS: ATTEND Internal Medicine
DX: I25.10 Atherosclerotic heart disease of native coronary artery without angina pectoris (principal); I10 Essential (primary) hypertension
CPT/HCPCS: 78452; 93017; A9500; J0153

== ENCOUNTER → 2020-05-09 | Outpatient (CLI) | payer MEDICARE, OTHER ==
[~2020-05-09] VITALS: Ht 170.2 cm; Wt 83.0 kg
[~2020-05-09] MED LIST changes: -ADENOSINE 70 MG in GIVE UN-DILUTED 0 ML IV STA; +ATOR20TA50 PO; +PANT1INJ3 PO
[2020-05-09 12:05] LABS: Basophils # (auto) 0 10 ^3/uL (0-0.2); Eosinophils # (auto) 0.1 10 ^3/uL (0-0.8); Monocytes # (auto) 0.5 10 ^3/uL (0-1.3); White Blood Cell 5.1 10^3/uL (4.4-10.8)
[2020-05-09 12:07] LABS: Basophils % (auto) 0.4 % (0.0-2.0); Eosinophils % (auto) 2.9 % (0.0-7.0); Hematocrit 50.7 % (41.0-53.0); Hemoglobin 17.7 g/dL (13.5-17.5); Lymphocytes % (auto) 39.6 % (10.0-50.0); Mean Corpuscular Hemoglobin 33.7 pg (28.0-32.0); Mean Corpuscular Volume 96.5 fL (80.0-100.0); Monocytes % (auto) 9.2 % (0.0-12.0); Neutrophils # (auto) 2.4 10 ^3/uL (1.6-8.6); Neutrophils % (auto) 47.9 % (37.0-80.0); Nucleated Red Blood Cells % 1.5 %; Platelet Count (auto) 165 10^3/uL (140-450); Red Blood Cells 5.26 10^6/uL (4.5-5.90); Red Cell Distribution Width 12.6 % (11.8-14.3)
[2020-05-09 12:12] LABS: INR 1.08 (0.9-1.15); Partial Thromboplastin Time 29.7 sec (23.0-31.2)
[2020-05-09 13:31] LABS: Potassium 4.1 mmol/L (3.5-5.1)
[2020-05-09 13:37] LABS: Albumin 4.2 g/dL (3.4-5.0); BUN/Creatinine Ratio 12.8; Bilirubin, Total 1.3 mg/dL (0.2-1.0); Calcium 9.1 mg/dL (8.5-10.1); Total Protein 7.7 g/dL (6.4-8.2)
== END | disposition home or self-care (01) ==
LOC: LAB 11:40
PROVIDERS: ATTEND Internal Medicine
DX: Z01.812 Encounter for preprocedural laboratory examination (principal); I10 Essential (primary) hypertension; I25.10 Atherosclerotic heart disease of native coronary artery without angina pectoris
CPT/HCPCS: 36415; 80053; 85025; 85610; 85730; C9803; U0003

== ENCOUNTER 2020-05-12 06:51 | Day surgery (SDC) | payer MEDICARE, OTHER ==
[~2020-05-12] VITALS: Ht 170.2 cm; Wt 83.0 kg
[~2020-05-12 06:51] MED LIST changes: -ATOR40TA52 PO
[2020-05-12] MEDS ORDERED: IODIXANOL 320MG/ML 100ML BTL IV ONE ×2 (07:47→09:13)
[2020-05-12] MEDS ORDERED: LIDOCAINE 2%HCL (LOCAL ANESTH.) INJ 20ML MDV ONE (07:47)
[2020-05-12] MEDS ORDERED: VERAPAMIL 2.5MG/ML INJ 2ML VIAL IV ONE (09:12)
[2020-05-12] MEDS ORDERED: fentaNYL CITRATE 100 MCG/2 ML VL ONE (09:12)
[2020-05-12] MEDS ORDERED: ANGIOMAX 250 MG VIAL IV ONE (09:12)
[2020-05-12] MEDS ORDERED: SODIUM CHL 0.9% 50 ML ONE (09:13)
[2020-05-12] MEDS ORDERED: MIDAZOLAM HCL 1MG/1ML-2 ML VIAL ONE (09:13)
[2020-05-12] MEDS ORDERED: HEPARIN SODIUM (PORCINE) 5000 UNITS/ML 1ML VIAL ONE (09:17)
[2020-05-12] MEDS ORDERED: TICAGRELOR 90 MG TAB ONE (09:58)
--- NOTE | 2020-05-12 10:05 | NUR ---
Patient brought to recovery via [facility], report received from AMADO Espinosa. Patient is AO x 4, NAD noted. Right groin site is benign, no s/s of bleeding or hematoma formation noted. Dressing in place and is CDI. Patient educated on post-procedure care instructions and flat time, verbalized understanding.
[2020-05-12] MEDS ORDERED: ACETAMINOPHEN 500 MG TAB PO PRN (10:30)
[2020-05-12] MEDS ORDERED: ONDANSETRON HCL 4 MG/2 ML VIAL IV PRN (10:30)
[2020-05-12] MEDS ORDERED: HYDROcodone-ACET 5/325MG TAB PO PRN (10:30)
--- NOTE | 2020-05-12 10:35 | NUR ---
Patient resting in bed with eyes closed. Breaths are even and unlabored. NAD noted. Right groin site is unchanged.
--- NOTE | 2020-05-12 11:00 | NUR ---
Spoke to pharmacist Radha at [facility] Per MD Sanders patient is to receive prescription for Brilinta 90 mg BID, order placed with Radha. Per Radha patient will have in possession before discharge time.
--- NOTE | 2020-05-12 11:20 | NUR ---
Patient awake in bed resting comfortably. Denies pain at this time. Right groin site is benign.
--- NOTE | 2020-05-12 12:45 | NUR ---
Report given to AMADO Espinosa.
--- NOTE | 2020-05-12 13:30 | NUR ---
Patient is currently awake in bed eating lunch. Diet tolerated well. Right groin site remains unchanged. NAD noted.
--- NOTE | 2020-05-12 14:15 | NUR ---
Discharge instructions and post procedure care instructions given to patient verbally and via handouts. Patient received medication, Brilinta, at bedside from [facility]. All questions answered and patient verbalized understanding to instructions.
--- NOTE | 2020-05-12 14:30 | NUR ---
IV removal IV DC'd with clean sterile technique, catheter fully intact. Pressure dressing applied to site. Patient tolerated well. NOTE: []
--- NOTE | 2020-05-12 14:36 | NUR ---
Patient stable at this time. NAD noted. Taken out to vehicle via WC with all personal belongings in possession. Right groin site remained unchanged from previous notation. Neighbor, Kashif present for patient pick-up.
== END 2020-05-12 14:36 | disposition home or self-care (01) ==
LOC: CATH 06:51
PROVIDERS: ATTEND Internal Medicine
DX: I25.810 Atherosclerosis of coronary artery bypass graft(s) without angina pectoris (principal); I10 Essential (primary) hypertension; E78.5 Hyperlipidemia, unspecified; I25.2 Old myocardial infarction; Z79.82 Long term (current) use of aspirin; Z20.828 Contact with and (suspected) exposure to other viral communicable diseases; Z79.899 Other long term (current) drug therapy; Z95.1 Presence of aortocoronary bypass graft; Z98.890 Other specified postprocedural states
CPT/HCPCS: 93459; C1760; C1769; C1874; C1887; C1894; C9600; J0583; J1644; J2250; J3010; J7030; Q9967; U0003; 99152

== ENCOUNTER → 2021-05-15 | Outpatient (CLI) | payer MEDICARE, OTHER ==
[~2021-05-15] MED LIST changes: -ASPI-231 PO; +ASPI1TAB20 PO
== END | disposition home or self-care (01) ==
LOC: XYW 07:50
PROVIDERS: ATTEND Internal Medicine
DX: I07.1 Rheumatic tricuspid insufficiency (principal); I10 Essential (primary) hypertension
CPT/HCPCS: 93306

== ENCOUNTER → 2021-07-26 | Outpatient (CLI) | payer MEDICARE, OTHER ==
[2021-07-26 14:12] LABS: Urine Bacteria NONE SEEN /hpf (None Seen); Urine Blood Negative /uL (Negative); Urine Mucus FEW (None Seen); Urine Specific Gravity 1.026 (1.001-1.035); Urine WBC 6 /hpf (0 - 3)
== END | disposition home or self-care (01) ==
LOC: LAB 13:46
PROVIDERS: ATTEND Urology
DX: N20.0 Calculus of kidney (principal)
CPT/HCPCS: 81001; 87086

== ENCOUNTER 2021-11-07 06:49 | Day surgery (SDC) | payer MEDICARE, OTHER ==
[2021-11-05 11:05] LABS: Basophils # (auto) 0 10 ^3/uL (0-0.2); Eosinophils # (auto) 0.2 10 ^3/uL (0-0.8); Hemoglobin 16.2 g/dL (13.5-17.5); Monocytes # (auto) 0.5 10 ^3/uL (0-1.3); Neutrophils # (auto) 3.1 10 ^3/uL (1.6-8.6); Nucleated Red Blood Cells % 0.2 %
[2021-11-05 11:07] LABS: Basophils % (auto) 0.8 % (0.0-2.0); Eosinophils % (auto) 3.1 % (0.0-7.0); Lymphocytes # (auto) 2.2 10 ^3/uL (0.4-5.4); Lymphocytes % (auto) 36.3 % (10.0-50.0); Mean Corpuscular Hgb Conc. 35.3 g/dL (32.0-36.0); Mean Corpuscular Volume 96.4 fL (80.0-100.0); Monocytes % (auto) 8.5 % (0.0-12.0); Neutrophils % (auto) 51.3 % (37.0-80.0); Red Blood Cells 4.77 10^6/uL (4.5-5.90); Red Cell Distribution Width 12.4 % (11.8-14.3); White Blood Cell 6.1 10^3/uL (4.4-10.8)
[2021-11-05 11:52] LABS: INR 1.11 (0.9-1.15); Partial Thromboplastin Time 30.5 sec (23.6-33.0)
[2021-11-05 12:20] LABS: Albumin 3.9 g/dL (3.4-5.0); Calcium 8.9 mg/dL (8.5-10.1); Potassium 4.2 mmol/L (3.5-5.1)
[2021-11-05 12:24] LABS: BUN/Creatinine Ratio 12.5; Bilirubin, Total 0.9 mg/dL (0.2-1.0); Total Protein 7.1 g/dL (6.4-8.2)
[~2021-11-07] VITALS: Ht 170.2 cm; Wt 77.1 kg
[~2021-11-07 06:49] MED LIST changes: +CLOP75TA70 PO; +RANO500T2 PO
[2021-11-07] MEDS ORDERED: IOHEXOL 350 MG/ML 100ML IJ ONE (07:28)
[2021-11-07] MEDS ORDERED: IODIXANOL 320MG/ML 100ML BTL IV ONE ×2 (07:28→09:21)
[2021-11-07] MEDS ORDERED: HEPARIN IN NS 1000Units/500mL 1,500 ML ONE (07:29)
[2021-11-07] MEDS ORDERED: fentaNYL CITRATE 100 MCG/2 ML VL ONE (07:40)
[2021-11-07] MEDS ORDERED: ANGIOMAX 250 MG VIAL IV ONE (07:40)
[2021-11-07] MEDS ORDERED: MIDAZOLAM HCL 2MG/2ML 2ml VIAL (1mg/ml) ONE (07:41)
[2021-11-07] MEDS ORDERED: SODIUM CHL 0.9% 0 ML ONE (07:41)
[2021-11-07] MEDS ORDERED: LIDOCAINE 2%HCL (LOCAL ANESTH.) INJ 10ml MDV ONE (07:41)
== END 2021-11-07 12:03 | disposition home or self-care (01) ==
LOC: CATH 06:49
PROVIDERS: ATTEND Internal Medicine
DX: R94.39 Abnormal result of other cardiovascular function study (principal); I25.10 Atherosclerotic heart disease of native coronary artery without angina pectoris; I42.9 Cardiomyopathy, unspecified; Z95.5 Presence of coronary angioplasty implant and graft; Z82.49 Family history of ischemic heart disease and other diseases of the circulatory system; Z83.42 Family history of familial hypercholesterolemia; Z20.822 Contact with and (suspected) exposure to COVID-19
CPT/HCPCS: 36415; 80053; 85025; 85610; 85730; 93458; C1760; C1769; C1894; J1644; J2001; J2250; J3010; Q9967; U0003; 99152; 99153

== ENCOUNTER → 2022-08-15 | Outpatient (CLI) | payer MEDICARE, OTHER ==
[2022-08-15 08:49] LABS: Basophils # (auto) 0 10 ^3/uL (0-0.2); Basophils % (auto) 0.8 % (0.0-2.0); Eosinophils # (auto) 0.2 10 ^3/uL (0-0.8); Eosinophils % (auto) 3.5 % (0.0-7.0); Hematocrit 48.6 % (41.0-53.0); Hemoglobin 17.2 g/dL (13.5-17.5); Lymphocytes % (auto) 35.7 % (10.0-50.0); Mean Corpuscular Hemoglobin 33.8 pg (28.0-32.0); Mean Corpuscular Hgb Conc. 35.4 g/dL (32.0-36.0); Mean Corpuscular Volume 95.5 fL (80.0-100.0); Monocytes # (auto) 0.5 10 ^3/uL (0-1.3); Monocytes % (auto) 8.9 % (0.0-12.0); Neutrophils # (auto) 2.8 10 ^3/uL (1.6-8.6); Neutrophils % (auto) 51.1 % (37.0-80.0); Nucleated Red Blood Cells % 0.3 %; Red Blood Cells 5.09 10^6/uL (4.5-5.90); Red Cell Distribution Width 12.9 % (11.8-14.3); White Blood Cell 5.6 10^3/uL (4.4-10.8)
[2022-08-15 09:18] LABS: Urine Bacteria NONE SEEN /hpf (None Seen); Urine Blood Negative /uL (Negative); Urine Mucus FEW (None Seen); Urine Specific Gravity 1.022 (1.001-1.035); Urine WBC 1 /hpf (0 - 3)
[2022-08-15 09:33] LABS: Albumin 3.8 g/dL (3.4-5.0); BUN/Creatinine Ratio 13.5; Potassium 4.4 mmol/L (3.5-5.1); Total Protein 6.9 g/dL (6.4-8.2)
[2022-08-15 09:35] LABS: Bilirubin, Total 0.8 mg/dL (0.2-1.0)
== END | disposition home or self-care (01) ==
LOC: LAB 08:33
PROVIDERS: ATTEND Nurse Practitioner
DX: I10 Essential (primary) hypertension (principal); E78.5 Hyperlipidemia, unspecified
CPT/HCPCS: 36415; 80053; 80061; 81001; 85025

== ENCOUNTER → 2023-06-26 | Outpatient (CLI) | payer MEDICARE, OTHER ==
[~2023-06-26] MED LIST changes: -ENAL5TAB10 PO; +ENAL5TAB22 PO; -TAM04C PO; +TAMS-35 PO
[2023-06-26 08:51] LABS: Basophils # (auto) 0 10 ^3/uL (0-0.2); Eosinophils # (auto) 0.3 10 ^3/uL (0-0.8); Lymphocytes # (auto) 2.7 10 ^3/uL (0.4-5.4); Mean Corpuscular Hemoglobin 33.5 pg (28.0-32.0); Monocytes # (auto) 0.5 10 ^3/uL (0-1.3); White Blood Cell 6.5 10^3/uL (4.4-10.8)
[2023-06-26 08:53] LABS: Basophils % (auto) 0.7 % (0.0-2.0); Eosinophils % (auto) 4.1 % (0.0-7.0); Hematocrit 51.3 % (41.0-53.0); Lymphocytes % (auto) 40.6 % (10.0-50.0); Mean Corpuscular Hgb Conc. 35.1 g/dL (32.0-36.0); Mean Corpuscular Volume 95.4 fL (80.0-100.0); Monocytes % (auto) 7.8 % (0.0-12.0); Neutrophils # (auto) 3.1 10 ^3/uL (1.6-8.6); Neutrophils % (auto) 46.8 % (37.0-80.0); Nucleated Red Blood Cells % 1.7 %; Red Blood Cells 5.38 10^6/uL (4.5-5.90); Red Cell Distribution Width 12.8 % (11.8-14.3)
[2023-06-26 09:22] LABS: Alanine Aminotransferase 39 U/L (7-40); Albumin 4.3 g/dL (3.2-4.8); Alkaline Phosphatase 76 U/L (46-116); Anion Gap 5 (5-15); Aspartate Aminotransferase 23 U/L (13-40); BUN/Creatinine Ratio 6.4 (10.0-20.0); Blood Urea Nitrogen 8 mg/dL (9-23); Calcium 9.2 mg/dL (8.5-10.1); Carbon Dioxide 27 mmol/L (20-30); Chloride 109 mmol/L (98-107); Glucose 111 mg/dL (74-106); LDL Cholesterol 94 mg/dL (< 100); Potassium 4.1 mmol/L (3.5-5.1); Sodium 141 mmol/L (136-145); Triglycerides 133 mg/dL (< 150)
[2023-06-26 09:23] LABS: Bilirubin, Total 0.9 mg/dL (0.2-1.0); Cholesterol 140 mg/dL (< 200); HDL Cholesterol 32 mg/dL (40-59); Total Protein 6.6 g/dL (5.7-8.2)
== END | disposition home or self-care (01) ==
LOC: LAB 08:24
PROVIDERS: ATTEND Student in an Organized Health Care Education/Training Program
DX: I25.708 Atherosclerosis of coronary artery bypass graft(s), unspecified, with other forms of angina pectoris (principal); I10 Essential (primary) hypertension
CPT/HCPCS: 36415; 80053; 80061; 85025

== ENCOUNTER → 2023-07-07 | Outpatient (CLI) | payer MEDICARE, OTHER | END | disposition home or self-care (01) | LOC: XYW 09:47 | PROVIDERS: ATTEND Student in an Organized Health Care Education/Training Program | DX: I51.7 Cardiomegaly (principal); R93.1 Abnormal findings on diagnostic imaging of heart and coronary circulation | CPT/HCPCS: 93306 ==

== ENCOUNTER → 2024-04-02 | Outpatient (CLI) | payer MEDICARE, OTHER ==
[2024-04-02 08:46] LABS: Urine Bacteria None Seen /hpf (None Seen)
[2024-04-02 09:01] LABS: Basophils # (auto) 0 10 ^3/uL (0-0.2); Basophils % (auto) 0.5 % (0.0-2.0); Eosinophils # (auto) 0.2 10 ^3/uL (0-0.8); Eosinophils % (auto) 4.3 % (0.0-7.0); Hematocrit 47.4 % (41.0-53.0); Hemoglobin 16.9 g/dL (13.5-17.5); Lymphocytes # (auto) 2.2 10 ^3/uL (0.4-5.4); Lymphocytes % (auto) 41.1 % (10.0-50.0); Mean Corpuscular Hemoglobin 34.5 pg (28.0-32.0); Mean Corpuscular Hgb Conc. 35.8 g/dL (32.0-36.0); Mean Corpuscular Volume 96.4 fL (80.0-100.0); Monocytes # (auto) 0.5 10 ^3/uL (0-1.3); Monocytes % (auto) 8.3 % (0.0-12.0); Neutrophils # (auto) 2.5 10 ^3/uL (1.6-8.6); Neutrophils % (auto) 45.8 % (37.0-80.0); Nucleated Red Blood Cells % 0.1 %; Platelet Count (auto) 154 10^3/uL (140-450); Red Blood Cells 4.91 10^6/uL (4.5-5.90); Red Cell Distribution Width 12.9 % (11.8-14.3); White Blood Cell 5.4 10^3/uL (4.4-10.8)
[2024-04-02 09:06] LABS: Urine Blood Negative /uL (Negative); Urine Clarity Clear (Clear); Urine Color Yellow (Yellow); Urine Mucus FEW (None Seen); Urine Protein, UAD Negative (Negative); Urine Specific Gravity 1.023 (1.001-1.035); Urine Urobilinogen Normal (Negative); Urine WBC 1 /hpf (0 - 3)
[2024-04-02 09:48] LABS: Alanine Aminotransferase 32 U/L (7-40); Albumin 4.2 g/dL (3.2-4.8); Alkaline Phosphatase 97 U/L (46-116); Anion Gap 6 (5-15); Aspartate Aminotransferase 19 U/L (13-40); BUN/Creatinine Ratio 10.6 (10.0-20.0); Blood Urea Nitrogen 13 mg/dL (9-23); Calcium 9.6 mg/dL (8.7-10.4); Carbon Dioxide 25 mmol/L (20-31); Chloride 110 mmol/L (98-107); Cholesterol 114 mg/dL (< 200); Glucose 110 mg/dL (74-106); LDL Cholesterol 66 mg/dL (< 100); Potassium 4.5 mmol/L (3.5-5.1); Sodium 141 mmol/L (136-145); Triglycerides 97 mg/dL (< 150)
[2024-04-02 09:49] LABS: Bilirubin, Total 0.8 mg/dL (0.2-1.0); HDL Cholesterol 33 mg/dL (40-59); Total Protein 6.6 g/dL (5.7-8.2)
== END | disposition home or self-care (01) ==
LOC: LAB 08:24
PROVIDERS: ATTEND Nurse Practitioner
DX: E78.5 Hyperlipidemia, unspecified (principal); I10 Essential (primary) hypertension; E03.9 Hypothyroidism, unspecified; N40.0 Benign prostatic hyperplasia without lower urinary tract symptoms
CPT/HCPCS: 36415; 80053; 80061; 81001; 84153; 84443; 85025

== ENCOUNTER → 2024-10-20 | Outpatient (CLI) | payer MEDICARE, OTHER ==
[2024-10-20 08:26] LABS: Basophils # (auto) 0 10 ^3/uL (0-0.2); Basophils % (auto) 0.4 % (0.0-2.0); Eosinophils # (auto) 0.2 10 ^3/uL (0-0.8); Hematocrit 49.8 % (41.0-53.0); Hemoglobin 17.6 g/dL (13.5-17.5); Lymphocytes # (auto) 2.6 10 ^3/uL (0.4-5.4); Lymphocytes % (auto) 41.9 % (10.0-50.0); Mean Corpuscular Hemoglobin 33.4 pg (28.0-32.0); Mean Corpuscular Hgb Conc. 35.3 g/dL (32.0-36.0); Mean Corpuscular Volume 94.7 fL (80.0-100.0); Monocytes # (auto) 0.5 10 ^3/uL (0-1.3); Neutrophils # (auto) 2.8 10 ^3/uL (1.6-8.6); Neutrophils % (auto) 45.7 % (37.0-80.0); Nucleated Red Blood Cells % 1.3 %; Platelet Count (auto) 153 10^3/uL (140-450); Red Blood Cells 5.26 10^6/uL (4.5-5.90); White Blood Cell 6.1 10^3/uL (4.4-10.8)
[2024-10-20 08:48] LABS: Alkaline Phosphatase 83 U/L (46-116); Anion Gap 8 (5-15); Blood Urea Nitrogen 15 mg/dL (9-23); Calcium 9.6 mg/dL (8.7-10.4); Carbon Dioxide 26 mmol/L (20-31); Glucose 100 mg/dL (74-106); Potassium 4.2 mmol/L (3.5-5.1); Sodium 144 mmol/L (136-145); Total Protein 6.7 g/dL (5.7-8.2)
[2024-10-20 08:49] LABS: Albumin 4.4 g/dL (3.2-4.8); Aspartate Aminotransferase 31 U/L (13-40)
[2024-10-20 08:54] LABS: Alanine Aminotransferase 58 U/L (7-40); Chloride 110 mmol/L (98-107)
== END | disposition home or self-care (01) ==
LOC: LAB 08:00
PROVIDERS: ATTEND Student in an Organized Health Care Education/Training Program
DX: I10 Essential (primary) hypertension (principal); E78.5 Hyperlipidemia, unspecified; I42.9 Cardiomyopathy, unspecified
CPT/HCPCS: 36415; 80053; 83880; 84443; 85025

== ENCOUNTER 2025-05-02 09:22 | Outpatient (CLI) | payer MEDICARE, OTHER ==
[~2025-05-02] VITALS: Ht 170.2 cm; Wt 79.8 kg
[2025-05-02] MEDS: REGADENOSON 0.4 MG/5 ML SYRG IV ONE ×2 (11:03→11:18)
--- NOTE | 2025-05-03 11:49 | DVHSR ---
APPROVED REPORT Exam: Nuclear Stress Test BMI: 0 Medical History Allergies: No known drug allergies Stress Test Details Stress Test: Pharmacologic stress testing performed using 0.4 mg of regadenoson per 5 mL given IV over 10 seconds. HR Resting HR: 50 bpm Max Heart Rate (APMHR): 145.987242 bpm Max HR Achieved: 76 bpm Target HR (85% APMHR): 123.232605 bpm % of APMHR: 52.41 Recovery HR: 62 bpm BP Resting BP: 141/82 mmHg Recovery BP: 131/86 mmHg ECG Resting ECG: Sinus Bradycardia Clinical Reason for Termination: Completed protocol Nurse Comments Recieved pt. from [employer]. A/Ox4 on RA. Connected to groundwater monitoring technician, VS stable. PIV flushes well. Reviewed POC. Pt. verbalized understanding of procedure including risks and side effects, agrees for stress testing. Lexiscan stress test performed per protocol. [facility] tech administered Cardiolite. Pt. tolerated well. Pt. stable, no change on exam. VS returned to baseline. Transferred to [facility] [facility] via wheelchair w/ tech. Stress ECG Conclusion lvef 64% lateral infarct and ischemia is noted anterolateral ischemia abnormal study NM EXAM: Myocardial Perfusion REST/STRESS Imaging Protocol: Rest Tc-99m/Stress Tc-99m 1 day Resting Data Rest SPECT myocardial perfusion imaging was performed in supine position 60 minutes following the intravenous injection of 10.6 mCi of Tc-99m Sestamibi. Time of rest injection: 10:09 Date: 05/02/2025 Time of rest imagin:09 Date: 05/02/2025 Administration Route: IV Administration Site: Left Arm Pharmacologic Stress Pharmacologic stress test was performed by injecting Regadenoson 0.4 mg IV push followed by the intravenous injection of 27.4 mCi of Tc-99m Sestamibi. Time of stress injection: 11:20 Date: 05/02/2025 Time of stress imagin:20 Date: 05/02/2025 Administration Route: IV Administration Site: Left Arm Gated Stress SPECT was performed 60 minutes after stress injection. The images were gated to evaluate regional wall motion and calculate left ventricular ejection fraction. Stress only was performed in the Supine position. Nuclear Conclusion Nuclear Findings: positive for ischemia lvef 64% lateral infarct and ischemia is noted anterolateral ischemia abnormal study
== END 2025-05-02 17:00 | disposition home or self-care (01) ==
LOC: XYW 09:22
PROVIDERS: ATTEND Internal Medicine
DX: I25.9 Chronic ischemic heart disease, unspecified (principal); I25.810 Atherosclerosis of coronary artery bypass graft(s) without angina pectoris; R00.1 Bradycardia, unspecified
CPT/HCPCS: 78452; 93017; A9500; J2785